=== PATIENT | male | born 1945 | race Caucasian/White ===

== ENCOUNTER → 2025-02-13 | Outpatient (BNVA) | payer MEDICARE, MEDICAID, SELFPAY | END | disposition home or self-care (01) | PROVIDERS: PCP Physician Assistant; Referring Provider Physician Assistant; Visit Provider Urology | DX: N40.1 Benign prostatic hyperplasia with lower urinary tract symptoms (principal); N13.8 Other obstructive and reflux uropathy; R97.20 Elevated prostate specific antigen [PSA]; R39.198 Other difficulties with micturition; N40.2 Nodular prostate without lower urinary tract symptoms; K74.60 Unspecified cirrhosis of liver; I10 Essential (primary) hypertension; I85.00 Esophageal varices without bleeding; E78.5 Hyperlipidemia, unspecified | CPT/HCPCS: 81003; 99203; G0463 ==

== ENCOUNTER 2025-08-15 08:50 | Inpatient (IN) | payer MEDICARE, MEDICAID, SELFPAY ==
[2025-08-15] VITALS (10 sets, daily range): BP systolic 93–136; BP diastolic 60–86; PULSE 90–112; RESP 17–94; TEMP 36.1–36.8; O2SAT 91–98; BMI 22.6
--- NOTE | 2025-08-15 09:24 | XR_ITS ---
Examination: Abdomen sonogram, Limited Date and time of exam: August 15, 2025, 10 0 3:00 a.m. INDICATIONS: History of ascites, abdominal distention beginning 2 weeks ago Technique: Real-time george scale transabdominal sonographic images of the upper abdomen obtained. Findings: Posterior gallbladder wall 0.4 cm Negative for gallstones Normal common bile duct 0.3 cm Pancreatic head 2.3 cm Liver 10.3 cm nodular contour 23 mm liver cyst Mild ascites Moderate right pleural fluid Normal hepatopetal portal venous flow Patent IVC IMPRESSION: Mild ascites
--- NOTE | 2025-08-15 09:29 | PD.EDABDPN ---
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 Patient stated he has had increased abdominal girth causing discomfort when breathing. Patient unaware of diagnosis of cirrhosis and not aware of history of CHF. Denied sick contacts. Denied diarrhea. Denied history of hematemesis or hemoptysis. Denied melena or hematochezia.SOB w/ exertion. Per family 5lb weight loss. CBC CMP PT/INR US Related Data Home Medications ?Medication ?Instructions ?Recorded ?Confirmed lovastatin 20 mg tablet 20 mg PO QPM 05/17/22 02/13/25 tamsulosin 0.4 mg capsule 0.4 mg PO QHS 03/08/23 02/13/25 benazepril 20 mg tablet 20 mg PO QDAY 02/13/25 02/13/25 Allergies Allergy/AdvReac Type Severity Reaction Status Date / Time hypertonic saline nebulized AdvReac Severe Difficulty Uncoded 08/15/25 08:54 Breathing Review of Systems Review of Systems Narrative Review of Systems: General appearance: NO weight change, Yes fatigue, NO weakness, NO fever, NO chills, NO night sweats, No cough Skin: NO rash, NO itching, NO sores, NO moles HEENT: NO Trauma, NO nausea, NO vomiting, NO visual changes, NO blurry vision, NO double vision, NO tinnitus, NO vertigo, NO ear discharge, NO rhinorrhea, NO stuffiness, NO sneezing, NO allergy, NO epistaxis. NO Hoarseness, NO sore throat, NO swollen neck. Cardiac: NO Palpitations, NO dyspnea on exertion, NO orthopnea, NO paroxysmal nocturnal dyspnea, NO edema, Respiratory discomfort and Shortness of breath w/ exertion Respiratory: NO Shortness of Breath, NO Wheezing, NO Cough, NO Sputum, NO hemoptysis GI:NO appetite, NO nausea, NO vomiting, NO dysphagia, NO changes in bowel frequency, NO stool color, NO diarrhea, NO constipation, NO hemetemesis, NO hemorrhoids, NO melena, NO hematechezia, NO abdominal pain, NO jaundice, Increase abdominal distention Renal: NO frequency, NO hesitancy, NO urgency, NO hematuria, NO nocturia, NO incontinence MSK: NO muscle weakness, NO gout, NO arthritis, NO muscle stiffness Neuro: NO headaches, NO tremors, NO weakness, NO paralysis, NO seizures, NO loss of consciousness, NO numbness. Hem: NO anemia, NO easy bruising/bleeding, NO petechiae, NO purpura Endo: NO heat/cold intolerance, NO excessive sweating, NO polyuria, NO polydipsia, NO polyphagia, NO thyroid problems, NO diabetes Pysch: NO mood, NO anxiety, NO depression ED Exam Narrative Physical exam: General Appearance: Alert & Oriented X3, thin appearing male who is lying in bed in mild discomfort secondary to abdominal distention. HEENT: Skull symmetrical and atraumatic. Conjunctivae pale pink and moist. Pupils equal, round, reactive to light and accommodation (PERRL). External ear without lesion or discharge. Straight, nares patient, mucosa pink, no discharge. Cardio: Normal Rate and Rhythm with S1 and S2 heart sounds. No murmurs or extra heart sounds auscultated. No bruits on carotid auscultation. No peripheral edema or cyanosis. Lungs: Symmetric with good expansion. Chest and back non-tender. Decreased vesicular breath sounds on right lower lobe. Abdomen: Non-tender, Non-distended, Normal Reactive Bowel Sounds Neuro: Alert, cooperative, oriented to person, place, and time. Speech clear. CN grossly intact. Upper motor strength 5/5 and Lower motor strength 5/5. Sensation intact. Course Course Course Narrative: CBC ordered--> anemia with hemoglobin of 10.3 and hematocrit 31.5 MCV 94 platelet count 73, PT 13.2 INR 1.3 CMP: Sodium 137, total T. bili 1.6 AST 30 ALT 9 BNP 122 albumin 2.8 lipase 38 Previous H hep 05/18/2022 negative Ultrasound liver: Mild ascites moderate right pleural fluid noted Chest x-ray 08/15/2025: Large left pleural effusion and pneumonia of the right lung base--> concern for bilateral pleural effusion Quality Measures none Orders Category Date Time Status Bedside COVID-19 Antigen Test NOW Care 08/15/25 11:57 Active Insert IV NOW Care 08/15/25 12:33 Active US liver Stat Exams 08/15/25 09:24 Completed XR chest 1V portable Stat Exams 08/15/25 11:09 Completed Albumin, Peritoneal Fluid Routine Lab 08/15/25 09:25 Ordered Amylase,Peritoneal Fluid Routine Lab 08/15/25 09:25 Ordered BNP [B-Type Natriuretic Peptide] Routine Lab 08/15/25 09:36 Completed Body Fld Cult w Miguelina & Gram St Routine Lab 08/15/25 09:25 Ordered CBC Stat Lab 08/15/25 09:36 Completed CMP [Comprehensive Metabolic Panel] Stat Lab 08/15/25 09:36 Completed Cocci Serology IgM with reflex to IgG [Cocci Serology, Lab 08/15/25 09:51 Results Unk History] Stat Cocci Serology, IgG Stat Lab 08/15/25 09:51 Results FLU A&B [Influenza A & B Rapid Panel] Stat Lab 08/15/25 12:45 Completed Glucose,Peritoneal Fluid Routine Lab 08/15/25 09:25 Ordered LDH (Lactate Dehydrogenase) Stat Lab 08/15/25 09:36 Completed LDH,Peritoneal Fluid Routine Lab 08/15/25 09:25 Ordered Lipase Stat Lab 08/15/25 09:36 Completed PT [Prothrombin Time with INR] Stat Lab 08/15/25 09:36 Completed PTT [Partial Thromboplastin Time] Stat Lab 08/15/25 09:36 Completed Peritoneal Cell Cnt/Diff Routine Lab 08/15/25 09:25 Ordered Protein Total,Peritoneal Fluid Routine Lab 08/15/25 09:25 Ordered Doxycycline Inj [Vibramycin Inj] 100 mg Med 08/15/25 11:57 Discontinued Sodium Chloride 0.9% (Pop) [NS 0.9% mini bag] 100 ml IV X1 Furosemide [Lasix] Med 08/15/25 11:44 Discontinued 20 mg PO X1 ONE Furosemide [Lasix] Med 08/15/25 11:46 Discontinued 40 mg PO X1 ONE cefTRIAXone/D5w 1gm IV premix [Rocephin/D5w 1gm IV Med 08/15/25 11:57 Discontinued premix] 1 gm in 50 ml IV X1 Vital Signs Vital signs: Vital Signs Temperature 97.6 F 08/15/25 11:22 Pulse Rate 111 H 08/15/25 11:22 Respiratory Rate 17 08/15/25 11:22 Blood Pressure 126/76 08/15/25 11:22 Pulse Oximetry (%) 94 L 08/15/25 11:22 Oxygen Delivery Method Room Air 08/15/25 11:22 Abdominal Pain MDM Patient data External records reviewed:: [facility] previous records Clinical information provided by:: patient and family Social determinants that could affect healthcare access:: other (specify) (health literacy ) Patient has the following chronic illnesses:: HTN, CHF HFrEF 35-40%, decompensated cirrhosis How is presenting disease/condition affected by chronic disease/condition?: exacerbated by (cirrhosis & CHF ) Evaluation data The following diagnostics were reviewed and interpreted by me:: lab results Lab and/or radiology exams considered but not ordered:: none Interpretation Summary: Patient has a past medical history of decompensated cirrhosis, secondary to alcohol use disorder complaining of increasing abdominal girth and with sob w/ exertion. Chest x-ray noted to have left sided meniscus sign w/ likely pleural effusion and right sided pneumonia which there is a mild menisus sign which possible bilateral pleural effusion can not be ruled out. Antibiotics Ceftriaxone and doxy X 1 given concern for pneumonia. Lasix X 1 - The patient's plan was discussed with attending Dr. Breanne Mathias MD PGY2 Internal Medicine Medications / Prescriptions Medications or Prescriptions considered but not ordered:: none Medication administrations:: Medication Administration History Acetaminophen (Acetaminophen 500 Mg Tablet) 1,000 mg PO Q6H PRN PRN Reason: Fever >101.5 Stop: 09/14/25 13:12 Ceftriaxone Sodium/Dextrose (Rocephin/D5w 1gm Iv Premix) 1 gm in 50 mls @ 100 mls/hr IV QDAY OLGA Stop: 08/23/25 08:59 Metoprolol Succinate (Metoprolol Succinate Xl 25 Mg Tabcr) 25 mg PO HS OLGA Stop: 09/14/25 20:59 Ondansetron HCl (Ondansetron Inj 2 Mg/Ml Inj 2 Ml) 4 mg IVP Q6H PRN; Protocol PRN Reason: NAUSEA OR VOMITING Stop: 09/14/25 13:12 Discontinued Medications Furosemide (Furosemide 20 Mg Tablet) 20 mg PO X1 ONE Stop: 08/15/25 11:45 Furosemide (Furosemide 40 Mg Tablet) 40 mg PO X1 ONE Stop: 08/15/25 11:47 Last Admin: 08/15/25 12:40 Dose: 40 mg Documented By: IVANNA Ceftriaxone Sodium/Dextrose (Rocephin/D5w 1gm Iv Premix) 1 gm in 50 mls @ 100 mls/hr IV X1 ONE Stop: 08/15/25 12:26 Last Infusion: 08/15/25 13:06 Dose: Infused Documented By: Admin: 08/15/25 12:33 Dose: 100 mls/hr Documented By: IVANNA Doxycycline Hyclate 100 mg/ (Sodium Chloride) 100 mls @ 100 mls/hr IV X1 ONE Stop: 08/15/25 12:56 Last Infusion: 08/15/25 15:07 Dose: Infused Documented By: Admin: 08/15/25 13:05 Dose: 100 mls/hr Documented By: IVANNA same as above Consultations Consultation(s) initiated? (list below): No Diagnosis Differential diagnosis abdominal pain: calculus of kidney, constipation, pancreatitis, small bowel obstruction and other (cirrhosis) Most likely diagnosis given after review of the tests above:: Decompensated cirrhosis secondary to alcohol use disorder. Admission Indicated Admission indicated?: indicated Explain why admission is indicated or not indicated:: Yes, Admission indicated as patient presented with worsening decompensated cirrhosis w/ ascites, pneumonia, and concern for bilateral pleural effusion. Patient requires thoracentesis. - The patient's plan was discussed with attending Dr. Breanne Mathias MD PGY2 Internal Medicine Admission Request Was there a request for admission?: Yes Admission Attestation Admission request attestation: Discussed case with Dr. Resendiz from Hospitalist service regarding admission. Discussed patients ED course, exam findings, labs, and radiology results. The Hospitalist agrees to accept the patient for admission. Disposition Plan Disposition Plan: Admit Discharge Plan Plan Patient Disposition: Other Care w/in Hosp ([facility]) Problem List Clinical Impression: Pneumonia, Pleural effusion associated with hepatic disorder, Ascites
--- NOTE | 2025-08-15 09:52 | PC.NURSE ---
called pt back, no answer at this time
[2025-08-15 09:53] LABS: Basophils # (Auto) 0.0 Thou/mm3 (0.0-0.2); Basophils % (Auto) 1 % (0-2.5); Eosinophils # (Auto) 0.0 Thou/mm3 (0.0-0.5); Eosinophils % (Auto) 1 % (0-10); Hematocrit 31.5 % (41.0-53.0); Hemoglobin 10.3 g/dL (13.5-16.0); Immature Granulocytes Auto 0.02 Thou/mm3 (0.00-0.00); Lymphocytes # (Auto) 0.5 Thou/mm3 (1.0-4.8); Lymphocytes % (Auto) 11 % (10-50); Mean Corpuscular HGB Conc 32.7 g/dl (31.0-37.0); Mean Corpuscular Hemoglobin 30.6 pg (25.0-35.0); Mean Corpuscular Volume 94 fL (80-100); Monocytes # (Auto) 0.5 Thou/mm3 (0.0-0.8); Monocytes % (Auto) 11 % (0-12); Neutrophils # (Auto) 3.5 Thou/mm3 (1.8-7.7); Neutrophils % (Auto) 77 % (37-80); Nucleated Red Blood Cell # 0.00 Thou/mm3 (0.00-0.00); Nucleated Red Blood Cell % 0 /100 WBC (0); RDW Standard Deviation 53.4 fL (35.1-43.9); Red Blood Count 3.37 Miln/mm3 (4.50-5.90); White Blood Count 4.6 Thou/mm3 (3.8-10.6)
[2025-08-15 09:58] LABS: Platelet Count 73 Thou/mm3 (140-440)
[2025-08-15 10:11] LABS: Slide Review Platelets confirmed
[2025-08-15 10:28] LABS: Alanine Aminotransferase 9 U/L (10-49); Albumin, Serum 2.8 gm/dL (3.4-4.8); Albumin/Globulin Ratio 0.6 (1.2-2.2); Alkaline Phosphatase 78 U/L (46-116); Anion Gap 7 (7-16); Aspartate Amino Transferase 30 U/L (0-34); BUN/Creatinine Ratio 10 Ratio (12-20); Bilirubin,Total 1.6 mg/dL (0.3-1.2); Blood Urea Nitrogen 8 mg/dL (9-23); Calcium 7.9 mg/dL (8.3-10.6); Calcium (Corrected) 8.9 mg/dL (8.5-10.1); Carbon Dioxide 25.6 mMol/L (20.0-31.0); Chloride 104 mMol/L (98-107); Creatinine (Component) 0.8 mg/dL (0.6-1.3); Globulin 4.6 gm/dL (2.3-3.5); Glucose 104 mg/dL (74-106); LDH (Lactate Dehydrogenase) 199 U/L (120-246); Osmolality,Calculated 272 (275-295); Potassium 3.9 mMol/L (3.4-5.1); Sodium 137 mMol/L (136-145); Total Protein 7.4 gm/dL (5.7-8.2); eGFR > 60 See Note
[2025-08-15 10:58] LABS: INR 1.3 (0.9-1.3); Partial Thromboplastin Time 33.9 Seconds (22.0-36.0); Prothrombin Time 13.2 Seconds (9.0-12.2)
--- NOTE | 2025-08-15 11:09 | XR_ITS ---
EXAMINATION: PA chest single view TECHNIQUE: Upright PA chest single view Date and time: August 15, 2025, 1118 hours, comparison April 15, 2023 INDICATIONS: Shortness of breath today. FINDINGS: Normal heart size Large left pleural effusion Moderate right pleural effusion Pneumonia at the right lung base Ectatic thoracic aorta IMPRESSION: Large left pleural effusion Pneumonia right lung base
[2025-08-15 12:30] LABS: Lipase 38 U/L (12-53)
[2025-08-15] MEDS: cefTRIAXone/D5w 1gm IV premix 1 GM/50 ML BAG IV (12:33)
[2025-08-15 12:40] LABS: B-Type Natriuretic Peptide 122 pg/mL (0-100)
[2025-08-15] MEDS: DOXYCYCLINE INJ 100 MG in SODIUM CHLORIDE 0.9% (POP) 100 ML IV (13:05)
[2025-08-15 13:26] LABS: Cocci Serology, IgM Negative (Negative)
[2025-08-15 13:36] LABS: Influenza A Ag Negative; Influenza B Ag Negative
--- NOTE | 2025-08-15 15:23 | XR_ITS ---
Date and time: August 15, 2025, 1541 hours, comparison August 15, 2025 11:10 a.m. Examination: AP chest single view TECHNIQUE: AP portable semiupright chest single view INDICATIONS: Difficulty breathing this week with large bilateral pleural effusions, post thoracentesis. FINDINGS: Decrease in left pleural fluid No significant pneumothorax Large pleural effusions remain. Normal heart size IMPRESSION: No significant pneumothorax post thoracentesis
--- NOTE | 2025-08-15 15:40 | ECHO_ITS ---
Patient Info Name: Chet Felton Age: 80 years : 1945 Gender: Male Ht: 163 cm Wt: 60 kg BSA: 1.65 m2 BP: 105 / 60 mmHg Heart Rhythm: Tachycardia Exam Date: 08/16/2025 10:29 AM Admit Date: 08/15/2025 Site: [facility] Patient Status: I Technical Quality: Poor Exam Type: CA echo doppler complete Reason for Poor Study: poor echocardiographic windows Steam Room Attendant: Josie Lassiter Ordering Physician: Manpreet Altman Study Info Indications History of HFrEF - Primary Location: [id number] Left Ventricular Outflow Tract Name Value Normal LVOT 2D LVOT Diameter 2.0 cm LVOT Doppler LVOT Peak Velocity 112 cm/s LVOT Mean Gradient 2 mmHg LVOT VTI 19 cm LVOT VTI/AV VTI Ratio 1.6 LVOT Stroke Volume 59 ml Pulmonic Valve Name Value Normal PV Doppler PV Peak Velocity 109 cm/s Mitral Valve Name Value Normal MV Annular TDI MV Septal e' Velocity 5.9 cm/s MV Lateral e' Velocity 21.3 cm/s MV e' Average 13.59 cm/s Tricuspid Valve Name Value Normal TV Annular TDI TV Lateral Tita s' Velocity 13.3 cm/s >=9.5 Aorta Name Value Normal Ascending Aorta Ao Root Diameter (MM) 2.1 cm Ao Root Diam Index (MM) 1.3 cm/m2 Ao Root Diameter (2D) 3.2 cm Ao Root Diam Index (2D) 1.9 cm/m2 Aortic Valve Name Value Normal AV 2D/MM AV Cusp Sep (MM) 1.6 cm AV Doppler AV Peak Velocity 82 cm/s AV Mean Gradient 1 mmHg AV VTI 12 cm AV Area (Cont Eq VTI) 4.9 cm2 >=3.0 AV Area (Cont Eq Leo) 4.3 cm2 AV DI (Leo) 1.37 AV Regurgitation 2D LVOT Area 3.1 cm2 Ventricles Name Value Normal LV Dimensions 2D/MM IVS Diastolic Thickness (2D) 0.8 cm 0.6-1.0 LVID Diastole (2D) 4.2 cm 4.2-5.8 LVIW Diastolic Thickness (2D) 0.9 cm 0.6-1.0 LVID Systole (2D) 2.6 cm 2.5-4.0 LVOT Diameter 2.0 cm LV Mass (2D Cubed) 109.83 g 88.00-224.00 LV Mass Index (2D Cubed) 67 g/m2 49-115 Relative Wall Thickness (2D) 0.43 <=0.42 IVS/LVIW Diastolic Thickness (2D) 0.89 0.00-1.50 LV Fractional Shortening/Ejection Fraction 2D/MM LV Fractional Shortening (2D) 38 % 25-43 LV EF (2D Teichholz) 69 % LV Diastolic Volume (4C MOD) 86 ml LV EF (4C MOD) 44 % LV Diastolic Volume (2C MOD) 99 ml LV EF (2C MOD) 47 % LV Diastolic Volume (BP MOD) 98 ml 62-150 LV Diastolic Volume Index (BP MOD) 59 ml/m2 34-74 LV Systolic Volume (BP MOD) 54 ml 21-61 LV Systolic Volume Index (BP MOD) 33 ml/m2 11-31 LV EF (BP MOD) 45 % 52-72 LV Diastolic Length (4C) 7.1 cm LV Systolic Length (4C) 6.4 cm LV Stroke Volume (4C MOD) 38 ml RV Dimensions 2D/MM TV Lateral Tita s' Velocity 13.3 cm/s >=9.5 Atria Name Value Normal LA Dimensions LA Dimension (2D) 3.5 cm 3.0-4.0 LA Dimen Index (2D) 2.1 cm/m2 LA Dimension (MM) 3.4 cm 3.0-4.0 LA Volume (4C A-L) 23 ml LA Volume (BP A-L) 26 ml Wall Motion Scoring Wall Motion Scoring Index: 2.06 Left Ventricle Left ventricular chamber dimension is normal. Left ventricular systolic function is moderately reduced with visually estimated ejection fraction of 40-45%. The apex, inferior wall, anterior wall, anteroseptal wall, inferolateral wall, mid inferoseptal, and mid anterolateral wall are hypokinetic. The basal inferoseptal is dyskinetic. All other hernandez appear normal. Left ventricular segmental wall motion is abnormal. There is indeterminate diastolic function in the left ventricle. Right Ventricle Right ventricular chamber dimension is normal. Right ventricular systolic function is normal. Left Atrium Left atrial chamber dimension is normal. Right Atrium Right atrial chamber dimension is normal. Aortic Valve The aortic valve is trileaflet. There is mild aortic valve sclerosis. There is no aortic valve stenosis with a peak velocity of 82 cm/s, mean gradient of 1 mmHg, and aortic valve area of 4.9 cm2. There is no aortic valve regurgitation. Pulmonic Valve The pulmonic valve is normal. There is no pulmonic valve stenosis. There is no pulmonic regurgitation. Mitral Valve The mitral valve has thickened leaflets. There is no mitral valve stenosis. There is mild mitral valve regurgitation. Tricuspid Valve The tricuspid valve leaflets are normal. There is no tricuspid valve stenosis. There is no tricuspid valve regurgitation. Unable to estimate pulmonary artery systolic pressure due to inadequate tricuspid regurgitant envelope. Pericardium/Pleural The pericardium appears normal. There is no pericardial effusion. No pleural effusion visualized. Aorta The aortic measurements are indexed to age and body surface area. Summary 1. The echocardiogram is normal by two-dimensional, color flow imaging, and Doppler interrogation. 2. Left ventricular systolic function is moderately reduced with visually estimated ejection fraction of 40-45%. 3. The apex, inferior wall, anterior wall, anteroseptal wall, inferolateral wall, mid inferoseptal, and mid anterolateral wall are hypokinetic. 4. Right ventricle size is normal, and systolic function is normal. 5. There is mild aortic valve sclerosis with no stenosis. 6. There is mild mitral valve regurgitation. Report Signatures Finalized by So Diane on 08/16/2025 02:57 PM
[2025-08-15 16:27] LABS: Amylase,Pleural Fluid 24 IU/L; Glucose,Pleural Fluid 95 mg/dL; LDH,Pleural Fluid 50 IU/L; Protein Total,Pleural Fluid < 2.0 g/dL
[2025-08-15 16:29] LABS: Pleural Fluid WBC 207 /cmm
[2025-08-15 16:33] LABS: Pleural Fluid Appearance Cloudy; Pleural Fluid Color Yellow; Pleural Fluid RBC 7000 /cmm
[2025-08-15 16:34] LABS: Pleural Fluid Mononuclear 61 %; Pleural Fluid Polynuclear 39 %
--- NOTE | 2025-08-15 16:42 | ESHP_ITS ---
Documentation for date of: 08/15/25 HPI History of Present Illness History of present illness: HPI: 80-year-old male with a past medical history of Hypertension, cirrhosis with ascites, esophageal varices 4+ secondary to alcohol use disorder, CHF, HFrEF with an EF of 35-40%, who presented to the ED with chief complaint of water in his stomach and diffuse abdominal tenderness and pain during respiration. It started the day of admission and he has associated increased abdominal girth and pain during respiration. Patient is apparently unaware of his history of cirrhosis and CHF. He was found to have a large left pleural effusion on chest x-ray as well as right basilar pneumonia. Patient was admitted for observation of his acute decompensated cirrhosis secondary to alcohol use disorder. ED course: * Significant vitals on arrival included a heart rate of 111, satting at 94% on room air * Significant labs on arrival included a hemoglobin of 10.3, hematocrit 31.5, PT 13.2, T. bili 1.6, albumin 2.8 * Imaging: Chest x-ray showed a large left pleural effusion, liver ultrasound showed mild ascites, 23 mm liver cyst * Patient was started on ceftriaxone and doxycycline in the ED and given one- time dose of furosemide 40 mg. A left-sided thoracentesis was performed in the ED that drained approximately 2 L of fluid which was sent for cytology. History: * Past medical history as above. Patient denies having any medical conditions. * Surgical history: Hernia repair * Social history: Alcohol use disorder in the past, denies drinking currently * Home medications: Benazepril 20 mg daily, lovastatin 20 mg nightly, tamsulosin 0.4 mg nightly * Allergies: No known drug allergies Review of Systems Review of Systems Narrative Review of Systems: Review of Systems: * General: Denies fevers, chills. * HEENT: Denies headache, congestion, or sore throat. * Cardiac: Denies chest pain or palpitations. * Pulmonary: Admits to pain during respiration. * GI: Endorses increased bloating, increased abdominal girth. Patient mentions that he has been constipated. Denies nausea, vomiting, diarrhea, melena, or hematochezia. * : Denies dysuria, hematuria, frequency, or urgency. * MSK: Denies pain in the extremities, joints, or myalgias. * Neuro: Denies weakness, numbness, vision changes, or speech difficulty. Exam Vital Signs Temp Pulse Resp BP Pulse Ox O2 Del Method 98 F 110 H 18 130/86 H 98 Room Air 08/15/25 15:19 08/15/25 15:19 08/15/25 15:19 08/15/25 15:19 08/15/25 15:19 08/15/25 15:19 Narrative Exam General: Frail elderly man, temporal wasting. Awake and in no acute distress. Neurologic: GCS 15. Alert and oriented x3, no gross neurological deficit, and patient able to move all 4 extremities. HEENT: Normocephalic, atraumatic, mucous membranes moist. Pupils reactive to light. Heart: Regular rate and rhythm, normal S1 and S2, no murmurs. Lungs: No breath sounds in the left base, decreased breath sounds in the right base, bilateral apices clear to auscultation. Abdomen: Distended, positive fluid wave, nontender. No guarding or rebound tenderness. Extremities: No edema. 2+ radial and dorsalis pedis pulses bilaterally. Skin: Warm. Dry. No rash or ecchymoses. Results: Labs 08/16/25 04:25 08/16/25 04:25 Labs: Short CBC 08/15/25 Range/Units 09:36 WBC 4.6 (3.8-10.6) Thou/mm3 Hgb 10.3 L (13.5-16.0) g/dL Hct 31.5 L (41.0-53.0) % Plt Count 73 L (140-440) Thou/mm3 BMP 08/15/25 09:36 Sodium 137 Potassium 3.9 Chloride 104 Carbon Dioxide 25.6 BUN 8 L Creatinine 0.8 Glucose 104 Calcium 7.9 L Liver Function 08/15/25 Range/Units 09:36 Total Bilirubin 1.6 H (0.3-1.2) mg/dL AST 30 (0-34) U/L ALT 9 L (10-49) U/L Alkaline Phosphatase 78 (46-116) U/L Albumin 2.8 L (3.4-4.8) gm/dL Quality Measures Quality Measures none Advance care planning discussed with:: patient Medications Home Medications and Allergies Home Medications ?Medication ?Instructions ?Recorded ?Confirmed ?Type lovastatin 20 mg tablet 20 mg PO QPM 05/17/22 History tamsulosin 0.4 mg capsule 0.4 mg PO QHS 03/08/2308/15 History benazepril 20 mg tablet 20 mg PO QDAY 02/13/2508/15 History Allergies Allergy/AdvReac Type Severity Reaction Status Date / Time hypertonic saline nebulized AdvReac Severe Difficulty Uncoded 08/15/25 08:54 Breathing Visit Medications Acetaminophen (Acetaminophen 500 Mg Tablet) 1,000 mg PO Q6H PRN PRN Reason: Fever >101.5 Stop: 09/14/25 13:12 Ceftriaxone Sodium/Dextrose (Rocephin/D5w 1gm Iv Premix) 1 gm in 50 mls @ 100 mls/hr IV QDAY OLGA Stop: 08/23/25 08:59 Metoprolol Succinate (Metoprolol Succinate Xl 25 Mg Tabcr) 25 mg PO HS OLGA Stop: 09/14/25 20:59 Ondansetron HCl (Ondansetron Inj 2 Mg/Ml Inj 2 Ml) 4 mg IVP Q6H PRN; Protocol PRN Reason: NAUSEA OR VOMITING Stop: 09/14/25 13:12 Discontinued Medications Furosemide (Furosemide 20 Mg Tablet) 20 mg PO X1 ONE Stop: 08/15/25 11:45 Furosemide (Furosemide 40 Mg Tablet) 40 mg PO X1 ONE Stop: 08/15/25 11:47 Last Admin: 08/15/25 12:40 Dose: 40 mg Ceftriaxone Sodium/Dextrose (Rocephin/D5w 1gm Iv Premix) 1 gm in 50 mls @ 100 mls/hr IV X1 ONE Stop: 08/15/25 12:26 Last Infusion: 08/15/25 13:06 Dose: Infused Doxycycline Hyclate 100 mg/ (Sodium Chloride) 100 mls @ 100 mls/hr IV X1 ONE Stop: 08/15/25 12:56 Last Infusion: 08/15/25 15:07 Dose: Infused Assessment & Plan Plan Summary: 80-year-old male with a past medical history of Hypertension, cirrhosis with ascites, esophageal varices 4+ secondary to alcohol use disorder, CHF, HFrEF with an EF of 35-40%, who presented to the ED with chief complaint of water in his stomach and diffuse abdominal tenderness and pain during respiration. Thoracentesis was performed in the ED. Patient was admitted for observation of his acute decompensated cirrhosis secondary to alcohol use disorder. #Acute decompensated cirrhosis * Abdominal ultrasound showed moderate ascites * Fluid wave on exam * Patient mentions a history of alcohol use * May be contributing to pleural effusion and ascites Plan: * Patient received Lasix in the ED Reassessment: * Trend urine output * Follow-up abdominal exam #Left pleural effusion #Possible pneumonia * Patient has a history of ICU admission and thoracentesis that yielded 4 L of fluid in 2022 * Large left pleural effusion shown on x-ray, evidence of pneumonia on the right as well * Thoracentesis performed in the ED that yielded approximately 2 L of fluid, was sent for cytology * Patient had improvement in his pain on respiration status-post thoracentesis * Follow-up chest x-ray showed little improvement, may require additional thoracentesis Plan: * Consider repeat thoracentesis * Ceftriaxone Reassessment: * Continue to monitor respiratory status #History of HFrEF EF 35 to 40% #History of CHF * Echo in 2022 showed an EF of 35 to 40% * Per med rec, patient is not on GDMT for HFrEF * Patient has no signs of acute decompensated heart failure on exam, no peripheral edema, lung sounds outside of the pleural effusion are clear to auscultation, pleural effusion likely secondary to liver cirrhosis not acute decompensated heart failure Plan: * Started patient on metoprolol succinate 25 * Repeat echo ordered Reassessment: * Follow-up echo results * Consider discharging patient on GDMT #History of hypertension * Per chart review * Patient takes benazepril 20 mg daily Plan: * Holding for now #History of upper GI bleed #History of +4 bleeding esophageal varices secondary to #History of alcohol use disorder * Follows Dr. Leiva * Status post band ligation in 2022 Plan: * No direct intervention at this time #Normocytic anemia * Hemoglobin 10.3, MCV 94 Plan: * Appears to be a chronic issue * Will transfuse if hemoglobin below 7 Hospital Maintenance: DVT ppx: SCDs, holding chemical prophylaxis, may repeat thoracentesis Diet: Cardiac diet IV lines: Peripheral IVs Code status: Full code Dispo: Patient mated for observation, diuresing, may repeat thoracentesis, started on metoprolol for GDMT of history of HFrEF, repeat echo ordered. Patient was seen and discussed with my attending physician Dr. Don MCDONALD. Manpreet Altman DO PGY-1. Attending Provider Attestation/Addendum I, Samara Ochoa DO, attest that I was physically present for the gong portions of the service and evaluated the patient with the resident and I reviewed and discussed the case with the resident and agree with the resident's findings and plans of care as documented above Patient is an 80-year-old male with past medical history of hypertension, BPH, chronic pleural effusion alcoholic cirrhosis with ascites, esophageal varices, cardiomyopathy with ejection fraction 35 to 40% who presents to the ED due to abdominal discomfort for the past week. He also endorses having some shortness of breath with ambulation. He states that is difficult for him to take deep breaths due to pain in his abdomen. Patient has had previous admissions for decompensated cirrhosis and GI bleed. Patient was noted to have a reduced ejection fraction in the past with EF of 35 to 40%. However, patient states that he does not take any medications at home. Upon evaluation in the ED, he was noted to have a large left pleural effusion and moderate right pleural effusion with possible pneumonia at the right lung base. Patient denies any fevers, chills, nausea, vomiting, chest pain, dysuria or diarrhea. Will admit to [facility] [place] for further workup and medical management of possible decompensated cirrhosis versus acute CHF exacerbation. Will obtain echo and fluid studies once thoracentesis is done. On exam, patient has diminished breath sounds in bilateral lung bases. Abdomen is mildly distended with mild tenderness to deep palpation. No peripheral edema noted.
--- NOTE | 2025-08-15 17:26 | ESOP_ITS ---
PROCEDURES: Procedure Date / Time 08/15/25 1726 Procedure Narrative Procedure Narrative: Attending Attestation: I was present for entire procedure. No immediate complications. Patient tolerated procedure well with minimal blood loss. Follow-up chest x-ray shows no significant postprocedural pneumothorax. Follow- up on fluid analysis. Thoracentesis Indication(s): symptomatic Pleural Effusion Informed consent obtained from: patient Time out done, and the following verified: correct patient, side and site, procedure, patient position and implants and/or equipment Ultrasound used: Yes Procedure location: lt. post pleual space Amount pleural fluid removed (ml): 2,000 EBL(ml): 1 Procedure comment: The patient was identified and informed consent was obtained after discussing the risks, benefits, and alternatives of the procedure. The procedure site was confirmed and marked, and the patient was positioned comfortably in the sitting position with arms resting on a table. The effusion was identified on ultrasound on the left lateral posterior chest wall. The skin was prepped and draped after donning a surgical gown and gloves. The area was anesthetized with lidocaine. The needle and catheter were introduced into the pleural space at the selected site. Approximately 2 L of pleural fluid was drained. A sample was sent for cytology analysis. The patient tolerated the procedure well. A follow- up chest x-ray was obtained. I was supervised and assisted by my attending physician Dr. Nika ORTIZ. Manpreet Altman DO PGY-1
--- NOTE | 2025-08-15 19:02 | PRELIM_ITS ---
Radiograph of the chest (single view). August 15, 2025 1541 hours Clinical history: Status-post thoracentesis Comparison: . None. Findings: Moderate???large bilateral pleural effusions. The left pleural effusion is partially loculated. There is collapse/atelectasis of the right and left lower lobes. Suspected spiculated left midlung mass (which would be better evaluated by CT than x-ray). No pneumothorax is seen. Borderline cardiomegaly. The bony thorax is unremarkable. Impression: Pleural effusions as above. Suspected spiculated left pulmonary mass (which would be better evaluated by CT than x-ray). Report Electronically Signed By: Chet Pandey 08/15/2025 7:02:17 PM [EST]
[2025-08-15 21:14] LABS: Misc Send Out* See Sep Rpt
[2025-08-16] VITALS (11 sets, daily range): BP systolic 99–117; BP diastolic 60–81; PULSE 94–124; RESP 18–96; TEMP 36.6–37.2; O2SAT 91–93
--- NOTE | 2025-08-16 03:31 | PC.NURSE ---
Per hospital monitor, Pt is tachycardic (HR of 116) and running frequent PVCs and bigeminy. Pt appears to be calm/relaxed, no complaints of pain/discomfort, and no signs of distress. Dr. Foster was made aware. No new orders at this time.
[2025-08-16 05:13] LABS: Basophils # (Auto) 0.0 Thou/mm3 (0.0-0.2); Basophils % (Auto) 1 % (0-2.5); Eosinophils # (Auto) 0.1 Thou/mm3 (0.0-0.5); Eosinophils % (Auto) 3 % (0-10); Hematocrit 26.0 % (41.0-53.0); Immature Granulocytes Auto 0.01 Thou/mm3 (0.00-0.00); Lymphocytes # (Auto) 0.3 Thou/mm3 (1.0-4.8); Lymphocytes % (Auto) 11 % (10-50); Mean Corpuscular HGB Conc 33.5 g/dl (31.0-37.0); Mean Corpuscular Hemoglobin 31.1 pg (25.0-35.0); Mean Corpuscular Volume 93 fL (80-100); Monocytes # (Auto) 0.3 Thou/mm3 (0.0-0.8); Monocytes % (Auto) 12 % (0-12); Neutrophils # (Auto) 2.1 Thou/mm3 (1.8-7.7); Neutrophils % (Auto) 74 % (37-80); Nucleated Red Blood Cell # 0.00 Thou/mm3 (0.00-0.00); Nucleated Red Blood Cell % 0 /100 WBC (0); RDW Standard Deviation 52.4 fL (35.1-43.9); Red Blood Count 2.80 Miln/mm3 (4.50-5.90); White Blood Count 2.9 Thou/mm3 (3.8-10.6)
[2025-08-16 05:21] LABS: Hemoglobin 8.7 g/dL (13.5-16.0); Platelet Count 45 Thou/mm3 (140-440)
[2025-08-16 06:13] LABS: Alanine Aminotransferase 7 U/L (10-49); Albumin, Serum 2.4 gm/dL (3.4-4.8); Albumin/Globulin Ratio 0.6 (1.2-2.2); Alkaline Phosphatase 61 U/L (46-116); Anion Gap 4 (7-16); Aspartate Amino Transferase 28 U/L (0-34); BUN/Creatinine Ratio 13 Ratio (12-20); Bilirubin,Total 1.0 mg/dL (0.3-1.2); Blood Urea Nitrogen 9 mg/dL (9-23); Calcium 7.7 mg/dL (8.3-10.6); Calcium (Corrected) 9.0 mg/dL (8.5-10.1); Carbon Dioxide 28.6 mMol/L (20.0-31.0); Cardiac Risk Estimate 3.6 RATIO (4.0-6.7); Chloride 105 mMol/L (98-107); Cholesterol 90 mg/dL (132-200); Creatinine (Component) 0.7 mg/dL (0.6-1.3); Estimated Creatinine Clearance 70.5 mL/min (>60); Globulin 3.8 gm/dL (2.3-3.5); Glucose 89 mg/dL (74-106); HDL Cholesterol 25 mg/dL (40-60); LDL Cholesterol,Calculated 55 mg/dL (0-130); Osmolality,Calculated 273 (275-295); Potassium 3.5 mMol/L (3.4-5.1); Sodium 138 mMol/L (136-145); Total Protein 6.2 gm/dL (5.7-8.2); Triglycerides 52 mg/dL (30-150); eGFR > 60 See Note
[2025-08-16 06:45] LABS: Slide Review Platelets confirmed
[2025-08-16] MEDS: POTASSIUM CHLORIDE 10% 20 MEQ/15 ML UDC 40 MEQ PO (08:08)
[2025-08-16] MEDS: cefTRIAXone/D5w 1gm IV premix 1 GM/50 ML BAG IV (08:09)
--- NOTE | 2025-08-16 14:37 | PC.SS ---
This is 80-year-old, , life partnered male who presented to the ED due to suffering from abdominal pain. Patient appeared alert and oriented to self, place and situation. Patient reported that he resides at home. Patient reported that he is independent with all ADLs, no DME use. Patient assigned his daughter, Ava ([phone]). Patient's PCP is at [facility]. When medically clear, patient will return home with his family. Discharge plan: return home.
--- NOTE | 2025-08-16 15:02 | ESPR_ITS ---
Documentation for date of: 08/16/25 Subjective Subjective Interval history: Patient seen and examined at bedside. Pleural fluid analysis showed transudative effusions, however may be inaccurate due to diuresis received on arrival. Chest x-ray post-thoracentesis showed increased lung volumes, however pleural effusion still present. Patient attempted to ambulate unsuccessfully. Started Lasix 40 mg IV twice daily. Echo showed EF 40-45%, started losartan 25 mg daily. Exam Vital Signs Temp Pulse Resp BP Pulse Ox O2 Del Method O2 Flow Rate 98.4 F 106 H 18 116/69 92 L Room Air 2 08/16/25 12:00 08/16/25 12:00 08/16/25 12:00 08/16/25 12:00 08/16/25 12:00 08/16/25 12:00 08/16/25 08:00 Narrative Exam General: Frail elderly man, temporal wasting. Awake and in no acute distress. Neurologic: GCS 15. Alert and oriented x3, no gross neurological deficit, and patient able to move all 4 extremities. HEENT: Normocephalic, atraumatic, mucous membranes moist. Pupils reactive to light. Heart: Regular rate and rhythm, normal S1 and S2, no murmurs. Lungs: No breath sounds in the left base, decreased breath sounds in the right base, bilateral apices clear to auscultation. Abdomen: Distended, trace positive fluid wave, nontender. No guarding or rebound tenderness. Extremities: No edema. 2+ radial and dorsalis pedis pulses bilaterally. Skin: Warm. Dry. No rash or ecchymoses. Objective Labs 08/16/25 04:25 08/16/25 04:25 Labs: Laboratory Results - last 24 hr 08/15/25 08/16/25 14:30 04:25 WBC 2.9 L RBC 2.80 L Hgb 8.7 L Hct 26.0 L MCV 93 MCH 31.1 MCHC 33.5 RDW Std Deviation 52.4 H Plt Count 45 L D Neut % (Auto) 74 Lymph % (Auto) 11 Mills % (Auto) 12 Eos % (Auto) 3 Baso % (Auto) 1 Neut # (Auto) 2.1 Lymph # (Auto) 0.3 L Mills # (Auto) 0.3 Eos # (Auto) 0.1 Baso # (Auto) 0.0 Immature Gran # (Auto) 0.01 H Absolute Nucleated RBC 0.00 Immature Gran % 0 Nucleated RBC % 0 Sodium 138 Potassium 3.5 Chloride 105 Carbon Dioxide 28.6 Anion Gap 4 L BUN 9 Creatinine 0.7 Estim Creat Clear Calc 70.5 eGFR > 60 BUN/Creatinine Ratio 13 Glucose 89 Calculated Osmolality 273 L Calcium 7.7 L Corrected Calcium 9.0 Total Bilirubin 1.0 D AST 28 ALT 7 L Alkaline Phosphatase 61 D Total Protein 6.2 Albumin 2.4 L Globulin 3.8 H Albumin/Globulin Ratio 0.6 L Triglycerides 52 Cholesterol 90 L LDL Cholesterol, Calc 55 HDL Cholesterol 25 L Cholesterol/HDL Ratio 3.6 L Pleural Color Yellow Pleural Appearance Cloudy Pleural WBC 207 Pleural RBC 7000 Pleural Polynuclear WBC 39 Pleural Mononuclear WBC 61 Pleural Total Protein < 2.0 Pleural LDH 50 Pleural Glucose 95 Pleural Amylase 24 Misc Test Result Platelets confirmed Quality Measures Quality Measures none Advance care planning discussed with:: patient Assessment & Plan Assessment Current Active Medications: Generic Name Dose Route Start Last Admin Trade Name Freq PRN Reason Stop Dose Admin Acetaminophen 1,000 mg 08/15/25 13:13 Acetaminophen 500 Mg Tablet PO 09/14/25 13:12 Q6H PRN Fever >101.5 Furosemide 40 mg 08/16/25 18:00 Furosemide 40 Mg Tablet PO 09/15/25 17:59 BIDD OLGA Ceftriaxone Sodium/Dextrose 1 gm in 50 mls @ 100 mls/hr 08/16/25 09:00 08/16/25 08:09 Rocephin/D5w 1gm Iv Premix IV 08/23/25 08:59 100 mls/hr QDAY OLGA Administration Metoprolol Succinate 25 mg 08/15/25 21:00 08/15/25 20:28 Metoprolol Succinate Xl 25 Mg Tabcr PO 09/14/25 20:59 Not Given HS OLGA Ondansetron HCl 4 mg 08/15/25 13:13 Ondansetron Inj 2 Mg/Ml Inj 2 Ml IVP 09/14/25 13:12 Q6H PRN NAUSEA OR VOMITING Protocol Plan Summary: 80-year-old male with a past medical history of Hypertension, cirrhosis with ascites, esophageal varices 4+ secondary to alcohol use disorder, CHF, HFrEF with an EF of 35-40%, who presented to the ED with chief complaint of water in his stomach and diffuse abdominal tenderness and pain during respiration. Thoracentesis was performed in the ED. Patient was admitted for observation of his acute decompensated cirrhosis secondary to alcohol use disorder. #Acute decompensated cirrhosis * Abdominal ultrasound showed moderate ascites * Fluid wave on exam * Patient mentions a history of alcohol use * May be contributing to pleural effusion and ascites Plan: * Patient received Lasix in the ED * Started Lasix 40 mg IV twice daily Reassessment: * Trend urine output, patient has a net positive fluid balance * Follow-up abdominal exam #Left transudative pleural effusion #Possible pneumonia * Patient has a history of ICU admission and thoracentesis that yielded 4 L of fluid in 2022 * Large left pleural effusion shown on x-ray, evidence of pneumonia on the right as well * Thoracentesis performed in the ED that yielded approximately 2 L of fluid, was sent for cytology, results showed a transudative pleural effusion, may be inaccurate due to diuresis, pleural fluid albumin pending * Patient had improvement in his pain on respiration status-post thoracentesis * Follow-up chest x-ray showed little improvement in lung volumes Plan: * Consider repeat thoracentesis * Ceftriaxone * Pleural fluid cultures pending - though preliminary results show transudative effusions, this may be inaccurate due to diuresis * Pleural fluid albumin pending * Diuresing: Lasix 40 mg p.o. twice daily Reassessment: * Patient attempted to ambulate, he walked 10 steps and became tachycardic with a rate of 147, a respiratory rate of 33, and desatted to 88% #History of HFrEF EF 35 to 40% #History of CHF * Echo in 2022 showed an EF of 35 to 40% * Per med rec, patient is not on GDMT for HFrEF * Patient has no signs of acute decompensated heart failure on exam, no peripheral edema, lung sounds outside of the pleural effusion are clear to auscultation, pleural effusion likely secondary to liver cirrhosis not acute decompensated heart failure Plan: * Metoprolol succinate 25 * Losartan 25 Reassessment: * BP sufficient for dual therapy * Repeat echo showed EF of 40-45% * Will discharge on GDMT #History of hypertension * Per chart review * Patient takes benazepril 20 mg daily Plan: * Holding for now #History of upper GI bleed #History of +4 bleeding esophageal varices secondary to #History of alcohol use disorder * Follows Dr. Leiva * Status post band ligation in 2022 Plan: * No direct intervention at this time #Normocytic anemia * Hemoglobin 10.3, MCV 94 Plan: * Appears to be a chronic issue * Will transfuse if hemoglobin below 7 Hospital Maintenance: DVT ppx: SCDs, holding chemical prophylaxis, may repeat thoracentesis. Diet: Cardiac diet IV lines: Peripheral IVs Code status: Full code Dispo: Patient unsuccessfully tried to ambulate today, desaturated and became tachycardic and tachypneic. May repeat thoracentesis, started Lasix 40 mg p.o. twice daily. Echo showed EF 40-45%, started losartan 25 mg daily. Patient was seen and discussed with my attending physician Dr. Don MCDONALD. Manpreet Altman DO PGY-1. Attending Provider Attestation/Addendum I, Samara Ochoa DO, attest that I was physically present for the gong portions of the service and evaluated the patient with the resident and I reviewed and discussed the case with the resident and agree with the resident's findings and plans of care as documented above Patient seen and evaluated this AM. Patient states he is doing well. However, he is noted to have tachycardia and desaturated to the 80s following 10 steps. Plan for repeat thorascentesis tomorrow. Will continue patient on IV diuretics and start on goal directed medical therapy given findings of EF 40-45%. Pending final echo read.
[2025-08-16] MEDS: FUROSEMIDE INJ 10 MG/ML 4ML VIAL 40 MG IVP (17:51)
[2025-08-16] MEDS: METOPROLOL SUCCINATE XL 25 MG TABCR PO (20:36)
--- NOTE | 2025-08-16 20:50 | PD.PUCONS ---
HPI Pulmonology Consult Data of Consult Requesting Physician: Trevon Maher MD Primary Care Provider: Rolo Ernandez MD Consult Narrative History of present illness: Patient is an 80 year old male with PMH HFrEF, thrombocytopenia, esophageal varices and alcoholic cirrhosis who presented with abdominal distention. Patient with significant bilateral pleural effusions on imaging and request for evaluation and treatment by pulmonology. Patient with stable oxygenation on room air. Patient with mild increased work of breathing at rest in ED bed. He reports dyspnea with exertion mostly. is at bedside and reports that he is quite limited with activity due to this. He has no cough, chest pain, chills, night sweats, or recent fevers. Patient without recent sick contacts and no travel. Patient with prior thoracentesis historically and well tolerated. He is not on any blood thinner and denied history of easy bleeding or bruising. Patient with no pertinent smoking history and no history of malignancy. Patient lives with life partner and family locally available. cc:: cc: Trevon Maher MD Review of Systems Review of Systems Narrative Review of Systems: Pertinent review of systems was completed, significant findings included in HPI above. Past Medical History Past Medical History Comments PMH COMMENT: PMH, PSH, and Social history reviewed. See HPI above for details. Fam Hx noncontributory. Meds Home Medications and Allergies Allergies Allergy/AdvReac Type Severity Reaction Status Date / Time hypertonic saline nebulized AdvReac Severe Difficulty Uncoded 08/15/25 08:54 Breathing Exam Vital Signs Temp Pulse Resp BP Pulse Ox O2 Del Method O2 Flow Rate 97.8 F 100 18 97/64 90 L Room Air 2 08/17/25 12:00 08/17/25 12:00 08/17/25 12:00 08/17/25 12:00 08/17/25 12:00 08/17/25 12:00 08/17/25 04:00 Narrative Exam General: No acute distress, sitting upright du eto urinary frequency after lasix Eye: PERRL, EOMI HENT: NC/AT, moist mucu smembranes Neck: Supple, non-tender, no JVD Lungs: Absent breath sounds at both bases Heart: S1/S2+ RRR no R/M/G Abdomen: Soft,mild distention, no tender, BS distant Musculoskeletal: Normal range of motion and strength, no tenderness or swelling Skin: Skin is warm, dry, no rashes or lesions Neurologic: Nonfocal on gross examination Psychiatric: Appropriate mood and affect Physical Exam Completion Physical Exam Complete?: Yes Results - [employer] Labs 08/19/25 04:50 08/19/25 04:50 Labs: Short CBC 08/17/25 Range/Units 09:24 WBC 3.2 L (3.8-10.6) Thou/mm3 Hgb 10.4 L (13.5-16.0) g/dL Hct 30.7 L (41.0-53.0) % Plt Count 74 L D (140-440) Thou/mm3 BMP 08/17/25 09:24 Sodium 136 Potassium 3.0 L D Chloride 98 Carbon Dioxide 31.3 H BUN 9 Creatinine 0.8 Glucose 131 H Calcium 7.9 L Liver Function 08/17/25 Range/Units 09:24 Total Bilirubin 1.1 (0.3-1.2) mg/dL AST 36 H (0-34) U/L ALT 11 (10-49) U/L Alkaline Phosphatase 71 (46-116) U/L Albumin 2.8 L (3.4-4.8) gm/dL Assessment & Plan Additional Plan Additional Plan: Bilateral pleural effusions For patient's comfort will proceed with thoracentesis, pocket identified on left with ultrasound/ site marked He is agreeable to procedure Consent obtained at bedside in ED Procedure done in ED pending admission to bed Send fluid for analysis for assessment of transudative versus exudative process Thank you for allowing me to participate in the care of this patient, I remain available for any questions should they arise Provider Notation Provider Notation: Although this document has been carefully reviewed, there may still be some phonetic and other typographical errors. These errors are purely grammatical due to imperfections in the software program and should not be construed in any way to compromise the substance of the patient's medical care during this visit. Thank you for the opportunity and privilege in assisting you with this patient's care and management.
--- NOTE | 2025-08-16 23:24 | PC.NURSE ---
80% O2 sat on room air, pt asleep- Applied O2 inh on at 2L/min/nc.
[2025-08-17] VITALS (12 sets, daily range): BP systolic 89–106; BP diastolic 60–77; PULSE 83–103; RESP 17–99; TEMP 36.1–36.6; O2SAT 90–96
[2025-08-17] MEDS: FUROSEMIDE INJ 10 MG/ML 4ML VIAL 40 MG IVP (06:21)
--- NOTE | 2025-08-17 06:24 | PC.NURSE ---
95% O2 sat on 2L/min/nc- Discontinued O2 inh with 92% O2 sat on room air.
[2025-08-17] MEDS: LOSARTAN POTASSIUM 25 MG TABLET PO (08:20)
[2025-08-17] MEDS: cefTRIAXone/D5w 1gm IV premix 1 GM/50 ML BAG IV (08:20)
[2025-08-17 10:27] LABS: Basophils # (Auto) 0.0 Thou/mm3 (0.0-0.2); Basophils % (Auto) 1 % (0-2.5); Eosinophils # (Auto) 0.1 Thou/mm3 (0.0-0.5); Eosinophils % (Auto) 4 % (0-10); Hematocrit 30.7 % (41.0-53.0); Hemoglobin 10.4 g/dL (13.5-16.0); Immature Granulocytes Auto 0.01 Thou/mm3 (0.00-0.00); Lymphocytes # (Auto) 0.5 Thou/mm3 (1.0-4.8); Lymphocytes % (Auto) 15 % (10-50); Mean Corpuscular HGB Conc 33.9 g/dl (31.0-37.0); Mean Corpuscular Hemoglobin 31.7 pg (25.0-35.0); Mean Corpuscular Volume 94 fL (80-100); Monocytes # (Auto) 0.4 Thou/mm3 (0.0-0.8); Monocytes % (Auto) 11 % (0-12); Neutrophils # (Auto) 2.2 Thou/mm3 (1.8-7.7); Neutrophils % (Auto) 69 % (37-80); Nucleated Red Blood Cell # 0.00 Thou/mm3 (0.00-0.00); Nucleated Red Blood Cell % 0 /100 WBC (0); RDW Standard Deviation 53.1 fL (35.1-43.9); Red Blood Count 3.28 Miln/mm3 (4.50-5.90); White Blood Count 3.2 Thou/mm3 (3.8-10.6)
[2025-08-17 10:28] LABS: Platelet Count 74 Thou/mm3 (140-440)
[2025-08-17 10:51] LABS: Alanine Aminotransferase 11 U/L (10-49); Albumin, Serum 2.8 gm/dL (3.4-4.8); Albumin/Globulin Ratio 0.6 (1.2-2.2); Alkaline Phosphatase 71 U/L (46-116); Anion Gap 7 (7-16); Aspartate Amino Transferase 36 U/L (0-34); BUN/Creatinine Ratio 11 Ratio (12-20); Bilirubin,Total 1.1 mg/dL (0.3-1.2); Blood Urea Nitrogen 9 mg/dL (9-23); Calcium 7.9 mg/dL (8.3-10.6); Calcium (Corrected) 8.9 mg/dL (8.5-10.1); Carbon Dioxide 31.3 mMol/L (20.0-31.0); Chloride 98 mMol/L (98-107); Creatinine (Component) 0.8 mg/dL (0.6-1.3); Estimated Creatinine Clearance 61.7 mL/min (>60); Globulin 4.6 gm/dL (2.3-3.5); Glucose 131 mg/dL (74-106); Osmolality,Calculated 272 (275-295); Potassium 3.0 mMol/L (3.4-5.1); Sodium 136 mMol/L (136-145); Total Protein 7.4 gm/dL (5.7-8.2); eGFR > 60 See Note
[2025-08-17 11:54] LABS: Slide Review Platelets confirmed
[2025-08-17 13:34] LABS: Cocci Serology, IgG Negative (Negative)
--- NOTE | 2025-08-17 14:35 | XR_ITS ---
EXAMINATION: AP chest single view TECHNIQUE: AP portable sitting chest single view Date and time: August 17, 2025, 1606 hours INDICATIONS: Post right thoracentesis FINDINGS: No pneumothorax post thoracentesis Large left pleural effusion Normal heart size Atelectasis left lower lobe IMPRESSION: No pneumothorax post thoracentesis
--- NOTE | 2025-08-17 15:13 | ESCONSULT_ITS ---
<Statement entered by So Diane MD - 08/18/25 17:33> Patient is examined and MedSurg floor with resident physician PGY 2 DR. MAGUIRE, patient is admitted has multiple problems including large pleural effusion ascites HFrEF ejection fraction 40% clinically stable not have any clinical heart failure symptoms has some JVD not have any chest pain shortness of I agree with treatment plan recommendation as documented we will continue to monitor the patient closely with resident physician and hospitalist team HPI Data of Consult Requesting Physician: Samara Ochoa DO Admitting Provider: Samara Ochoa DO Attending Provider: Samara Ochoa DO Primary Care Provider: Rolo Ernandez MD Consult Narrative Reason for consult: HFpEF History of present illness: 80-year-old male with past medical history of hypertension, decompensated liver cirrhosis secondary to alcohol use disorder, esophageal varices, HFpEF EF 40 to 45% presented to the ED apparently on 08/15 with diffuse abdominal tenderness and ascites. In the ED a large left pleural effusion was seen incidentally on chest x-ray along with right basilar pneumonia. Patient was admitted initially for observation but decision was made to complete a thoracentesis to remove symptomatic pleural effusion. Cardiology was later consulted as echo showed HFpEF although the patient currently is not in acute heart failure exacerbation as noted by clinical exam showing no signs of acute heart failure (no JVD, peripheral edema and the patient is currently on room air). Patient later had a second thoracentesis which showed serosanguineous fluid as comparison to the first thoracentesis which was transudative. [facility] has been consulted for recommendations as well. Past medical history: As stated above Past surgical history: Hernia repair Allergies: Hypertonic saline nebulized because of difficulty breathing Medications: As listed Family history: Noncontributory Social history: Patient denies any active alcohol use but has extensive history in the past, denies any tobacco or illicit drug use ROS: All 12 systems assessed and the patient denies unless otherwise stated in HPI cc:: cc: Samara Ochoa DO Exam Vital Signs Temp Pulse Resp BP Pulse Ox O2 Del Method O2 Flow Rate 97.8 F 100 18 97/64 90 L Room Air 2 08/17/25 12:00 08/17/25 12:00 08/17/25 12:00 08/17/25 12:00 08/17/25 12:00 08/17/25 12:00 08/17/25 04:00 Narrative Exam Physical Exam: GENERAL: Awake, answering questions appropriately in [place], appears frail HEENT: NC/AT. Moist mucosa. PERRLA/EOMI. mildly anicteric sclera CARDIO: Heart RRR, no obvious murmurs, no JVD. PULM: No coughing or visible SOB. Decreased breath sounds on bilateral lower lung rome, no wheeze/rales/rhonchi GI: Abdomen soft, mildly distended but nontender on palpation, borborygmi apparent SKIN/MSK/EXT: Mild discoloration of the skin, jaundice. No wounds/edema/amputations noted. +Pedal pulses present B/L. NEURO: Oriented x3, Moves extremities x4, no focal neurologic deficits noted Results Labs 08/17/25 09:24 08/17/25 09:24 Labs: Short CBC 08/17/25 Range/Units 09:24 WBC 3.2 L (3.8-10.6) Thou/mm3 Hgb 10.4 L (13.5-16.0) g/dL Hct 30.7 L (41.0-53.0) % Plt Count 74 L D (140-440) Thou/mm3 BMP 08/17/25 09:24 Sodium 136 Potassium 3.0 L D Chloride 98 Carbon Dioxide 31.3 H BUN 9 Creatinine 0.8 Glucose 131 H Calcium 7.9 L Liver Function 08/17/25 Range/Units 09:24 Total Bilirubin 1.1 (0.3-1.2) mg/dL AST 36 H (0-34) U/L ALT 11 (10-49) U/L Alkaline Phosphatase 71 (46-116) U/L Albumin 2.8 L (3.4-4.8) gm/dL Quality Measures Quality Measures none Advance care planning discussed with:: patient Medications Home Medications and Allergies Home Medications ?Medication ?Instructions ?Recorded ?Confirmed ?Type lovastatin 20 mg tablet 20 mg PO QPM 05/17/22 History tamsulosin 0.4 mg capsule 0.4 mg PO QHS 03/08/2308/15 History benazepril 20 mg tablet 20 mg PO QDAY 02/13/2508/15 History Allergies Allergy/AdvReac Type Severity Reaction Status Date / Time hypertonic saline nebulized AdvReac Severe Difficulty Uncoded 08/15/25 08:54 Breathing Visit Medications Acetaminophen (Acetaminophen 500 Mg Tablet) 1,000 mg PO Q6H PRN PRN Reason: Fever >101.5 Stop: 09/14/25 13:12 Furosemide (Furosemide Inj 10 Mg/Ml 4ml Vial) 40 mg IVP [facility]D [facility] Stop: 09/15/25 17:59 Last Admin: 08/17/25 06:21 Dose: 40 mg Ceftriaxone Sodium/Dextrose (Rocephin/D5w 1gm Iv Premix) 1 gm in 50 mls @ 100 mls/hr IV QDAY [facility] Stop: 08/23/25 08:59 Last Admin: 08/17/25 08:20 Dose: 100 mls/hr Losartan Potassium (Losartan Potassium 25 Mg Tablet) 25 mg PO QDAY [facility] Stop: 09/16/25 08:59 Last Admin: 08/17/25 08:20 Dose: 25 mg Metoprolol Succinate (Metoprolol Succinate Xl 25 Mg Tabcr) 25 mg PO HS [facility] Stop: 09/14/25 20:59 Last Admin: 08/16/25 20:36 Dose: 25 mg Ondansetron HCl (Ondansetron Inj 2 Mg/Ml Inj 2 Ml) 4 mg IVP Q6H PRN; Protocol PRN Reason: NAUSEA OR VOMITING Stop: 09/14/25 13:12 Discontinued Medications Furosemide (Furosemide 20 Mg Tablet) 20 mg PO X1 ONE Stop: 08/15/25 11:45 Furosemide (Furosemide 40 Mg Tablet) 40 mg PO X1 ONE Stop: 08/15/25 11:47 Last Admin: 08/15/25 12:40 Dose: 40 mg Furosemide (Furosemide 40 Mg Tablet) 40 mg PO [facility]D [facility] Stop: 09/15/25 17:59 Ceftriaxone Sodium/Dextrose (Rocephin/D5w 1gm Iv Premix) 1 gm in 50 mls @ 100 mls/hr IV X1 ONE Stop: 08/15/25 12:26 Last Infusion: 08/15/25 13:06 Dose: Infused Doxycycline Hyclate 100 mg/ (Sodium Chloride) 100 mls @ 100 mls/hr IV X1 ONE Stop: 08/15/25 12:56 Last Infusion: 08/15/25 15:07 Dose: Infused Potassium Chloride (Potassium Chloride 10% 20 Meq/15 Ml Udc) 40 meq PO X1 ONE Stop: 08/16/25 08:01 Last Admin: 08/16/25 08:08 Dose: 40 meq Potassium Chloride (Potassium Chloride 20 Meq Tabcr) 40 meq PO X1 ONE Stop: 08/17/25 09:06 Assessment & Plan Plan 80-year-old male with past medical history of hypertension, decompensated liver cirrhosis secondary to alcohol use disorder, esophageal varices, HFpEF EF 40 to 45% admitted for symptomatic pleural effusion likely secondary to liver failure versus malignancy but less likely to be secondary to heart failure #HFpEF, global hypokinesis and moderately reduced systolic function Class III NYHA Heart Failure Classification Patient previously had an echo which showed HFrEF with an EF of 35-40 On exam, patient does not appear to be in acute heart failure exacerbation as there is no JVD, crackles on lung auscultation, patient's on room air and there is no lower extremity edema noted ECHO on 08/15/2025 is normal by two-dimensional, color flow imaging, and Doppler interrogation. Left ventricular systolic function is moderately reduced with visually estimated ejection fraction of 40-45%. The apex, inferior wall, anterior wall, anteroseptal wall, inferolateral wall, mid inferoseptal, and mid anterolateral wall are hypokinetic. Right ventricle size is normal, and systolic function is normal. There is mild aortic valve sclerosis with no stenosis. There is mild mitral valve regurgitation. Plan: Restart GDMT as tolerable Consider beta-belkys such as carvedilol as this medication can serve to address both HFpEF and esophageal variceal prophylaxis Add MARILU/ARB if blood pressure allows Consider spironolactone Outpatient follow-up with cardiology within 1 to 2 weeks of discharge #Acute decompensated liver cirrhosis #Esophageal varices #Left pleural effusion #Possible pneumonia #Hypertension #History of alcohol use disorder #Normocytic anemia, likely blood loss anemia Rest of medical problems to be managed by both the hospitalist and gastroenterology team Patient seen and assessed with attending Dr. Benedicto Magurie, DO PGY-2 Internal Medicine - [facility]
--- NOTE | 2025-08-17 15:38 | ESPR_ITS ---
Documentation for date of: 08/17/25 Subjective Subjective Interval history: Patient with continued recurrence of bilateral effusions. Thoracentesis on the left with significant relief but reacumulation on imaging. He was ambulated by housestaff yesterday with desaturation on RA. Patient resting in bed currently in no distress. Pires shave dyspnea with exertion. Trying to diurese with prior fluid analysis consistent with transudate. Critical Care Note Critical care time (min.): 0 Exam Vital Signs Temp Pulse Resp BP Pulse Ox O2 Del Method O2 Flow Rate 97.8 F 100 18 97/64 90 L Room Air 2 08/17/25 12:00 08/17/25 12:00 08/17/25 12:00 08/17/25 12:00 08/17/25 12:00 08/17/25 12:00 08/17/25 04:00 Narrative Exam General: No acute distress, upright in bed Eye: PERRL, EOMI HENT: NC/AT, mmm Neck: Supple, non-tender, no JVD Lungs: Absent breath sounds at both bases, dull to percussion more than 50% of right hemithorax Heart: S1/S2+ RRR no R/M/G Abdomen: Soft, no distention, no tender, BS distant Musculoskeletal: Normal range of motion and strength, no tenderness or swelling Skin: Skin is warm, dry, no rashes or lesions Neurologic: Nonfocal on gross examination Psychiatric: Appropriate mood and affect Physical Exam Completion Physical Exam Complete?: Yes Objective - [employer] Labs 08/19/25 04:50 08/19/25 04:50 Labs: Laboratory Results - last 24 hr 08/15/25 08/17/25 09:51 09:24 WBC 3.2 L RBC 3.28 L Hgb 10.4 L Hct 30.7 L MCV 94 MCH 31.7 MCHC 33.9 RDW Std Deviation 53.1 H Plt Count 74 L D Neut % (Auto) 69 Lymph % (Auto) 15 [place] % (Auto) 11 Eos % (Auto) 4 Baso % (Auto) 1 Neut # (Auto) 2.2 Lymph # (Auto) 0.5 L [place] # (Auto) 0.4 Eos # (Auto) 0.1 Baso # (Auto) 0.0 Immature Gran # (Auto) 0.01 H Absolute Nucleated RBC 0.00 Immature Gran % 0 Nucleated RBC % 0 Sodium 136 Potassium 3.0 L D Chloride 98 Carbon Dioxide 31.3 H Anion Gap 7 BUN 9 Creatinine 0.8 Estim Creat Clear Calc 61.7 eGFR > 60 BUN/Creatinine Ratio 11 L Glucose 131 H Calculated Osmolality 272 L Calcium 7.9 L Corrected Calcium 8.9 Total Bilirubin 1.1 AST 36 H ALT 11 Alkaline Phosphatase 71 Total Protein 7.4 Albumin 2.8 L Globulin 4.6 H Albumin/Globulin Ratio 0.6 L Coccidioides IgG Ab Negative Misc Test Result Platelets confirmed Impression Impression: Bilateral pleural effusions Acute hypoxic respiratory failure Favor chronic component to fluid accumulation Proceed with right thoracentesis for therapeutic reasons, monitor re-accmulation Needs for aggressive diuretic regimen, likely combination of hear failure and cirrhosis/ known prtal hypertension with varices Optimize nutrition, albumin very low due to liver disease Differ half-way management to medicine team I will sign off for now, if any questions arise, I remain available to be contacted Assessment & Plan Additional Plan Additional Plan: PLAN: See MD orders and discussion above. Will continue supportive care of the organ system problems, diagnoses, and failures noted above. [A central line continues to be necessary for infusion of medications and IV fluids, it is to be removed when other adequate venous access is accomplished.] [Cannot be safely managed without restraints as potential for harm secondary to inadvertent movement and loss of tubes and lines outweighs the burdens of restraint.] This patient is critically ill and required [] minutes of my time to provide documentation, evaluate, manage and maintain or prevent deterioration of the organ systems and problems noted above. This critical care time does not include time I spent performing procedures that are reported separately. [If vincent catheter present, it remains necessary to monitor urine output continuously, and/or divert urine from the skin. It will be removed per policy when it is not needed for these purposes.] Provider Notation Provider Notation: Although this document has been carefully reviewed, there may still be some phonetic and other typographical errors. These errors are purely grammatical due to imperfections in the software program and should not be construed in any way to compromise the substance of the patient's medical care during this visit. Thank you for the opportunity and privilege in assisting you with this patient's care and management.
[2025-08-17 15:57] LABS: Pleural Fluid WBC 372 /cmm
[2025-08-17 15:58] LABS: Pleural Fluid Color Red
[2025-08-17 15:59] LABS: Pleural Fluid Appearance Bloody; Pleural Fluid Mononuclear 83 %; Pleural Fluid Polynuclear 17 %; Pleural Fluid RBC 39000 /cmm
[2025-08-17 16:12] LABS: Albumin, Peritoneal Fluid < 1.0 gm/dL; Amylase,Pleural Fluid 31 IU/L; Glucose,Pleural Fluid 105 mg/dL; LDH,Pleural Fluid 80 IU/L; Protein Total,Pleural Fluid 2.2 g/dL
--- NOTE | 2025-08-17 16:28 | ESPR_ITS ---
<Statement entered by Elvia Mckinley MD - 08/17/25 16:48> Patient seen at bedside currently saturating on room air denies any shortness of breath. Patient's and son are also at bedside. Hemoglobin is stable, repeat thoracentesis is scheduled for today's. Due to echo findings compared to previous echo and repeat echo this hospital admission patient has not been seen by a acute care nurse therefore we will consult acute care nurse inpatient. Patient is started on GDMT. Will continue Rocephin for SBP prophylaxis in the setting of decompensated liver cirrhosis. Patient was seen and examined by me personally. I have directly supervised and reviewed documentation by the team resident and agree with its findings. ------- Plan of care was discussed with the attending, Dr. Don Mckinley, PGY-2 Documentation for date of: 08/17/25 Subjective Subjective Interval history: Patient seen and examined at bedside. Repeated thoracentesis today. Will change metoprolol to Coreg, cardiology consulted. Will start Protonix due to history of bleeding esophageal varices. Exam Vital Signs Temp Pulse Resp BP Pulse Ox O2 Del Method O2 Flow Rate 97.8 F 100 18 97/64 90 L Room Air 2 08/17/25 12:00 08/17/25 12:00 08/17/25 12:00 08/17/25 12:00 08/17/25 12:00 08/17/25 12:00 08/17/25 04:00 Narrative Exam General: Frail elderly man, temporal wasting. Awake and in no acute distress. Neurologic: GCS 15. Alert and oriented x3, no gross neurological deficit, and patient able to move all 4 extremities. HEENT: Normocephalic, atraumatic, mucous membranes moist. Pupils reactive to light. Heart: Regular rate and rhythm, normal S1 and S2, no murmurs. Lungs: No breath sounds in the left base, decreased breath sounds in the right base, bilateral apices clear to auscultation. Abdomen: Nondistended, nontender. No guarding or rebound tenderness. Extremities: No edema. 2+ radial and dorsalis pedis pulses bilaterally. Skin: Warm. Dry. No rash or ecchymoses. Objective Labs 08/18/25 09:15 08/18/25 09:15 Labs: Laboratory Results - last 24 hr 11/06/0108/17/25 08/17/25 09:51 09:24 14:30 WBC 3.2 L RBC 3.28 L Hgb 10.4 L Hct 30.7 L MCV 94 MCH 31.7 MCHC 33.9 RDW Std Deviation 53.1 H Plt Count 74 L D Neut % (Auto) 69 Lymph % (Auto) 15 [place] % (Auto) 11 Eos % (Auto) 4 Baso % (Auto) 1 Neut # (Auto) 2.2 Lymph # (Auto) 0.5 L [place] # (Auto) 0.4 Eos # (Auto) 0.1 Baso # (Auto) 0.0 Immature Gran # (Auto) 0.01 H Absolute Nucleated RBC 0.00 Immature Gran % 0 Nucleated RBC % 0 Sodium 136 Potassium 3.0 L D Chloride 98 Carbon Dioxide 31.3 H Anion Gap 7 BUN 9 Creatinine 0.8 Estim Creat Clear Calc 61.7 eGFR > 60 BUN/Creatinine Ratio 11 L Glucose 131 H Calculated Osmolality 272 L Calcium 7.9 L Corrected Calcium 8.9 Total Bilirubin 1.1 AST 36 H ALT 11 Alkaline Phosphatase 71 Total Protein 7.4 Albumin 2.8 L Globulin 4.6 H Albumin/Globulin Ratio 0.6 L Peritoneal Albumin < 1.0 Pleural Color Red Pleural Appearance Bloody Pleural WBC 372 Ple[place] RBC 56935 Pleural Polynuclear WBC 17 Pleural Mononuclear WBC 83 Pleural Total Protein 2.2 Pleural LDH 80 Pleural Glucose 105 Pleural Amylase 31 Coccidioides IgG Ab Negative Misc Test Result Platelets confirmed Quality Measures Quality Measures none Advance care planning discussed with:: patient Assessment & Plan Assessment Current Active Medications: Generic Name Dose Route Start Last Admin Trade Name Freq PRN Reason Stop Dose Admin Acetaminophen 1,000 mg 08/15/25 13:13 Acetaminophen 500 Mg Tablet PO 09/14/25 13:12 Q6H PRN Fever >101.5 Furosemide 40 mg 08/16/25 18:00 08/17/25 06:21 Furosemide Inj 10 Mg/Ml 4ml Vial IVP 09/15/25 17:59 40 mg BIDD OLGA Administration Ceftriaxone Sodium/Dextrose 1 gm in 50 mls @ 100 mls/hr 08/16/25 09:00 08/17/25 08:20 Rocephin/D5w 1gm Iv Premix IV 08/23/25 08:59 100 mls/hr QDAY OLGA Administration Losartan Potassium 25 mg 08/17/25 09:00 08/17/25 08:20 Losartan Potassium 25 Mg Tablet PO 09/16/25 08:59 25 mg QDAY OLGA Administration Metoprolol Succinate 25 mg 08/15/25 21:00 08/16/25 20:36 Metoprolol Succinate Xl 25 Mg Tabcr PO 09/14/25 20:59 25 mg HS OLGA Administration Ondansetron HCl 4 mg 08/15/25 13:13 Ondansetron Inj 2 Mg/Ml Inj 2 Ml IVP 09/14/25 13:12 Q6H PRN NAUSEA OR VOMITING Protocol Plan Summary: 80-year-old male with a past medical history of Hypertension, cirrhosis with ascites, esophageal varices 4+ secondary to alcohol use disorder, CHF, HFrEF with an EF of 35-40%, who presented to the ED with chief complaint of water in his stomach and diffuse abdominal tenderness and pain during respiration. Thoracentesis was performed in the ED. Patient was admitted for observation of his acute decompensated cirrhosis secondary to alcohol use disorder. #Acute decompensated cirrhosis * Abdominal ultrasound showed moderate ascites * Abdomen no longer distended * Patient mentions a history of alcohol use * May be contributing to pleural effusion and ascites Plan: * Patient received Lasix in the ED * Continue Lasix 40 mg IV twice daily Reassessment: * Trend urine output * Follow-up abdominal exam #Left transudative pleural effusion #Possible pneumonia * Patient has a history of ICU admission and thoracentesis that yielded 4 L of fluid in 2022 * Large left pleural effusion shown on x-ray, evidence of pneumonia on the right as well * Thoracentesis performed in the ED that yielded approximately 2 L of fluid, was sent for cytology, results showed a transudative pleural effusion, may be inaccurate due to diuresis, pleural fluid albumin pending * Patient had improvement in his pain on respiration status-post thoracentesis * Follow-up chest x-ray showed little improvement in lung volumes * Patient had a second thoracentesis on 08/17/2025 that yielded 2 L of red fluid from the right pleural space * Follow-up chest x-ray showed no pneumothorax on the right, large left pleural effusion is still present Plan: * Ceftriaxone * Pleural fluid cultures pending - though preliminary results show transudative effusions, this may be inaccurate due to diuresis * Pleural fluid albumin pending * Diuresing: Lasix 40 mg p.o. twice daily Reassessment: * Patient attempted to ambulate, he walked 10 steps and became tachycardic with a rate of 147, a respiratory rate of 33, and desatted to 88% on 08/16/2025 * Right thoracentesis pleural fluid sent for cytology #History of HFrEF EF 35 to 40% #History of CHF * Echo in 2022 showed an EF of 35 to 40% * Per med rec, patient is not on GDMT for HFrEF * Patient has no signs of acute decompensated heart failure on exam, no peripheral edema, lung sounds outside of the pleural effusion are clear to auscultation, pleural effusion likely secondary to liver cirrhosis not acute decompensated heart failure Plan: * Discontinued metoprolol succinate 25 on 08/17/2025 * Coreg 3.125 mg twice daily with meals started on 08/17/2025 * Losartan 25 milligrams p.o. daily * Cardiology consult Reassessment: * Monitor blood pressure * Repeat echo showed EF of 40-45% * Will discharge on GDMT #History of hypertension * Per chart review * Patient takes benazepril 20 mg daily Plan: * Holding for now * Started Coreg 3.125 p.o. twice daily with meals on 08/17/2025 #History of upper GI bleed #History of +4 bleeding esophageal varices secondary to #History of alcohol use disorder Follows Dr. Leiva * Status post band ligation in 2022 Plan: * Started Protonix 40 mg IV daily for 08/18/2025 #Normocytic anemia * Hemoglobin 10.3, MCV 94 Plan: * Appears to be a chronic issue * Will transfuse if hemoglobin below 7 Hospital Maintenance: DVT ppx: SCDs, holding chemical prophylaxis, may repeat thoracentesis. Diet: Cardiac diet IV lines: Peripheral IVs Code status: Full code Dispo: Patient underwent thoracentesis on the right and 2 L of fluid were drained. Metoprolol was switched to Coreg. Protonix was started. Cardiology consulted. Continuing diuresis. Patient was seen and discussed with my attending physician Dr. Don MCDONALD and my senior resident Dr. Elías ORTIZ PGY-2. Manpreet Altman DO PGY-1. Attending Provider Attestation/Addendum Wagner, Samara Ochoa DO, attest that I was physically present for the gong portions of the service and evaluated the patient with the resident and I reviewed and discussed the case with the resident and agree with the resident's findings and plans of care as documented above Patient seen and eval this a.m. Patient will have thoracentesis at bedside done this afternoon due to tachycardia and desaturation upon taking 10 steps yesterday. Patient states that he does not take any medication, nor does he follow-up with any specialists. He previously had ejection fraction of 35 to 40%, currently 40 to 45%. Started patient on losartan and metoprolol which she has been tolerating. Continue with Lasix 40 mg IV push twice daily. If patient remains stable in a.m. following thoracentesis, anticipate discharge home. Patient has no acute complaints at this time and is saturating well on room air at rest. Cardiology has been consulted due to HFrEF.
--- NOTE | 2025-08-17 16:29 | PD.RESPROC ---
PROCEDURES: Procedure Date / Time 08/17/25 1629 Procedure Narrative Procedure Narrative: Attending Attestation: I was present for entire procedure. Patient tolerated procedure well with no immediate complications. Fluid analysis to be done. Pulm follow-up chest x-ray shows no significant pneumothorax with persistent left large pleural effusion and basilar atelectasis/compressive atelectasis. Patient remains stable on room air. Thoracentesis Indication(s): symptomatic Pleural Effusion Informed consent obtained from: patient Time out done, and the following verified: correct patient, side and site, procedure, patient position and implants and/or equipment Ultrasound used: Yes Procedure location: rt. post pleural space Amount pleural fluid removed (ml): 2,000 EBL(ml): 1 Procedure comment: The patient was identified and informed consent was obtained after discussing the risks, benefits, and alternatives of the procedure. The procedure site was confirmed and marked, and the patient was positioned comfortably in the sitting position with arms resting on a table. The effusion identified on ultrasound on the right lateral posterior chest wall. The skin was prepped and draped after donning a surgical gown and gloves. The area was anesthetized with lidocaine. The needle and catheter were introduced into the pleural space at the selected site. Approximately 2 L of pleural fluid was drained. A sample was sent for cytology analysis. The patient tolerated the procedure well. No pneumothorax was identified on follow-up chest x-ray. I was supervised and assisted by my attending physician Dr. Nika ORTIZ. Manpreet lAtman DO PGY-1
[2025-08-18] VITALS (13 sets, daily range): BP systolic 87–107; BP diastolic 56–76; PULSE 87–109; RESP 16–37; TEMP 36.1–37; O2SAT 94–99
[2025-08-18 06:12] LABS: LDH (Lactate Dehydrogenase) 183 U/L (120-246); Total Protein 6.3 gm/dL (5.7-8.2)
--- NOTE | 2025-08-18 07:59 | PC.NURSE ---
spoke with , hold coreg and janna d/t low bp
[2025-08-18] MEDS: cefTRIAXone/D5w 1gm IV premix 1 GM/50 ML BAG IV (08:08)
--- NOTE | 2025-08-18 08:14 | ESPR_ITS ---
<Statement entered by So Diane MD - 08/18/25 17:36> The patient is personally examined evaluated by me on telemetry MedSurg floor patient is clinically doing well did have a thoracentesis also ascites appears to be better there is some JVD but not have any chest pain shortness tolerating the beta-blockers and very well that well and low-dose carvedilol also spironolactone tolerating well. Overall patient is clinically stable not have any further episodes of shortness or chest pain no leg swelling. Evaluate the patient with resident physician PGY [address] MAGUIRE agree with the treatment plan recommendation as documented Documentation for date of: 08/18/25 Subjective Subjective Interval history: Patient seen and assessed in hospital bed denies having any concerning symptoms at this time. Continue treatment of HFpEF with guideline based medical therapy superimposed with decompensated liver cirrhosis. Patient could benefit from outpatient cardiology referral from primary care provider. Exam Vital Signs Temp Pulse Resp BP Pulse Ox O2 Del Method O2 Flow Rate 97 F 95 20 94/57 L 99 Nasal Cannula 2 08/18/25 07:53 08/18/25 07:53 08/18/25 07:53 08/18/25 07:53 08/18/25 07:53 08/18/25 07:53 08/18/25 07:53 Narrative Exam Physical Exam: GENERAL: Awake, answering questions appropriately in [place], appears frail HEENT: NC/AT. Moist mucosa. PERRLA/EOMI. mildly anicteric sclera CARDIO: Heart RRR, no obvious murmurs, no JVD. PULM: No coughing or visible SOB. Decreased breath sounds on bilateral lower lung rome, no wheeze/rales/rhonchi GI: Abdomen soft, mildly distended but nontender on palpation, borborygmi apparent SKIN/MSK/EXT: Mild discoloration of the skin, jaundice. No wounds/edema/amputations noted. +Pedal pulses present B/L. NEURO: Oriented x3, Moves extremities x4, no focal neurologic deficits noted Objective Labs 08/18/25 09:15 08/18/25 09:15 Labs: Laboratory Results - last 24 hr 08/15/25 08/17/25 08/17/25 09:51 09:24 14:30 WBC 3.2 L RBC 3.28 L Hgb 10.4 L Hct 30.7 L MCV 94 MCH 31.7 MCHC 33.9 RDW Std Deviation 53.1 H Plt Count 74 L D Neut % (Auto) 69 Lymph % (Auto) 15 [place] % (Auto) 11 Eos % (Auto) 4 Baso % (Auto) 1 Neut # (Auto) 2.2 Lymph # (Auto) 0.5 L [place] # (Auto) 0.4 Eos # (Auto) 0.1 Baso # (Auto) 0.0 Immature Gran # (Auto) 0.01 H Absolute Nucleated RBC 0.00 Immature Gran % 0 Nucleated RBC % 0 Sodium 136 Potassium 3.0 L D Chloride 98 Carbon Dioxide 31.3 H Anion Gap 7 BUN 9 Creatinine 0.8 Estim Creat Clear Calc 61.7 eGFR > 60 BUN/Creatinine Ratio 11 L Glucose 131 H Calculated Osmolality 272 L Calcium 7.9 L Corrected Calcium 8.9 Total Bilirubin 1.1 AST 36 H ALT 11 Alkaline Phosphatase 71 Lactate Dehydrogenase Total Protein 7.4 Albumin 2.8 L Globulin 4.6 H Albumin/Globulin Ratio 0.6 L Peritoneal Albumin < 1.0 Pleural Color Red Pleural Appearance Bloody Pleural WBC 372 Pleural RBC 33369 Pleural Polynuclear WBC 17 Pleural Mononuclear WBC 83 Pleural Total Protein 2.2 Pleural LDH 80 Pleural Glucose 105 Pleural Amylase 31 Coccidioides IgG Ab Negative Misc Test Result Platelets confirmed 08/18/25 05:12 WBC RBC Hgb Hct MCV MCH MCHC RDW Std Deviation Plt Count Neut % (Auto) Lymph % (Auto) [place] % (Auto) Eos % (Auto) Baso % (Auto) Neut # (Auto) Lymph # (Auto) [place] # (Auto) Eos # (Auto) Baso # (Auto) Immature Gran # (Auto) Absolute Nucleated RBC Immature Gran % Nucleated RBC % Sodium Potassium Chloride Carbon Dioxide Anion Gap BUN Creatinine Estim Creat Clear Calc eGFR BUN/Creatinine Ratio Glucose Calculated Osmolality Calcium Corrected Calcium Total Bilirubin AST ALT Alkaline Phosphatase Lactate Dehydrogenase 183 Total Protein 6.3 Albumin Globulin Albumin/Globulin Ratio Peritoneal Albumin Pleural Color Pleural Appearance Pleural WBC Pleural RBC Pleural Polynuclear WBC Pleural Mononuclear WBC Pleural Total Protein Pleural LDH Pleural Glucose Pleural Amylase Coccidioides IgG Ab Misc Test Result Quality Measures Quality Measures none Advance care planning discussed with:: patient Assessment & Plan Assessment Current Active Medications: Generic Name Dose Route Start Last Admin Trade Name Freq PRN Reason Stop Dose Admin Acetaminophen 1,000 mg 08/15/25 13:13 Acetaminophen 500 Mg Tablet PO 09/14/25 13:12 Q6H PRN Fever >101.5 Carvedilol 3.125 mg 08/17/25 17:30 08/18/25 07:58 Carvedilol 3.125 Mg Tablet PO 09/16/25 17:29 Not Given BIDWM OLGA Furosemide 40 mg 08/16/25 18:00 08/18/25 05:11 Furosemide Inj 10 Mg/Ml 4ml Vial IVP 09/15/25 17:59 Not Given BIDD OLGA Ceftriaxone Sodium/Dextrose 1 gm in 50 mls @ 100 mls/hr 08/16/25 09:00 08/18/25 08:08 Rocephin/D5w 1gm Iv Premix IV 08/23/25 08:59 100 mls/hr QDAY OLGA Administration Losartan Potassium 25 mg 08/17/25 09:00 08/18/25 07:58 Losartan Potassium 25 Mg Tablet PO 09/16/25 08:59 Not Given QDAY OLGA Ondansetron HCl 4 mg 08/15/25 13:13 Ondansetron Inj 2 Mg/Ml Inj 2 Ml IVP 09/14/25 13:12 Q6H PRN NAUSEA OR VOMITING Protocol Pantoprazole Sodium 40 mg 08/18/25 09:00 08/18/25 08:08 Pantoprazole Inj 40 Mg Vial IVP 09/17/25 08:59 40 mg QDAY OLGA Administration Plan 80-year-old male with past medical history of hypertension, decompensated liver cirrhosis secondary to alcohol use disorder, esophageal varices, HFpEF EF 40 to 45% admitted for symptomatic pleural effusion likely secondary to liver failure versus malignancy but less likely to be secondary to heart failure #HFpEF, global hypokinesis and moderately reduced systolic function Class III NYHA Heart Failure Classification Patient previously had an echo which showed HFrEF with an EF of 35-40 On exam, patient does not appear to be in acute heart failure exacerbation as there is no JVD, crackles on lung auscultation, patient's on room air and there is no lower extremity edema noted ECHO on 08/15/2025 is normal by two-dimensional, color flow imaging, and Doppler interrogation. Left ventricular systolic function is moderately reduced with visually estimated ejection fraction of 40-45%. The apex, inferior wall, anterior wall, anteroseptal wall, inferolateral wall, mid inferoseptal, and mid anterolateral wall are hypokinetic. Right ventricle size is normal, and systolic function is normal. There is mild aortic valve sclerosis with no stenosis. There is mild mitral valve regurgitation. Plan: Consider adding midodrine to increase blood pressure to tolerate GDMT Continue carvedilol as this medication can serve to address both HFpEF and esophageal variceal prophylaxis Continue Losartan Consider spironolactone outpatient or if BP improves Outpatient follow-up with cardiology within 1 to 2 weeks of discharge #Acute decompensated liver cirrhosis #Esophageal varices #Left pleural effusion #Possible pneumonia #Hypertension #History of alcohol use disorder #Normocytic anemia, likely blood loss anemia Rest of medical problems to be managed by both the hospitalist and gastroenterology team Patient seen and assessed with attending Dr. Benedicto Maguire, DO PGY-2 Internal Medicine - [facility]
[2025-08-18 09:40] LABS: Basophils # (Auto) 0.0 Thou/mm3 (0.0-0.2); Basophils % (Auto) 1 % (0-2.5); Eosinophils # (Auto) 0.1 Thou/mm3 (0.0-0.5); Eosinophils % (Auto) 3 % (0-10); Hematocrit 28.5 % (41.0-53.0); Hemoglobin 9.5 g/dL (13.5-16.0); Immature Granulocytes Auto 0.01 Thou/mm3 (0.00-0.00); Lymphocytes # (Auto) 0.4 Thou/mm3 (1.0-4.8); Lymphocytes % (Auto) 10 % (10-50); Mean Corpuscular HGB Conc 33.3 g/dl (31.0-37.0); Mean Corpuscular Hemoglobin 31.8 pg (25.0-35.0); Mean Corpuscular Volume 95 fL (80-100); Monocytes # (Auto) 0.5 Thou/mm3 (0.0-0.8); Monocytes % (Auto) 13 % (0-12); Neutrophils # (Auto) 2.9 Thou/mm3 (1.8-7.7); Neutrophils % (Auto) 74 % (37-80); Nucleated Red Blood Cell # 0.00 Thou/mm3 (0.00-0.00); Nucleated Red Blood Cell % 0 /100 WBC (0); RDW Standard Deviation 53.7 fL (35.1-43.9); Red Blood Count 2.99 Miln/mm3 (4.50-5.90); White Blood Count 4.0 Thou/mm3 (3.8-10.6)
[2025-08-18 09:44] LABS: Platelet Count 56 Thou/mm3 (140-440); Slide Review Platelets confirmed
[2025-08-18 10:05] LABS: Alanine Aminotransferase 9 U/L (10-49); Albumin, Serum 2.5 gm/dL (3.4-4.8); Albumin/Globulin Ratio 0.6 (1.2-2.2); Alkaline Phosphatase 64 U/L (46-116); Anion Gap 6 (7-16); Aspartate Amino Transferase 28 U/L (0-34); BUN/Creatinine Ratio 13 Ratio (12-20); Bilirubin,Total 0.8 mg/dL (0.3-1.2); Blood Urea Nitrogen 10 mg/dL (9-23); Calcium 7.9 mg/dL (8.3-10.6); Calcium (Corrected) 9.1 mg/dL (8.5-10.1); Carbon Dioxide 29.6 mMol/L (20.0-31.0); Chloride 101 mMol/L (98-107); Creatinine (Component) 0.8 mg/dL (0.6-1.3); Estimated Creatinine Clearance 61.7 mL/min (>60); Globulin 4.3 gm/dL (2.3-3.5); Glucose 140 mg/dL (74-106); Magnesium 1.9 mg/dL (1.6-2.6); Osmolality,Calculated 274 (275-295); Phosphorous 2.4 mg/dL (2.4-5.1); Potassium 3.2 mMol/L (3.4-5.1); Sodium 137 mMol/L (136-145); Total Protein 6.8 gm/dL (5.7-8.2); eGFR > 60 See Note
--- NOTE | 2025-08-18 11:28 | PD.RESPRO ---
Documentation for date of: 08/18/25 Subjective Subjective Interval history: NAEO. Repeated thoracentesis today. Patient denies acute pain. SpO2 appropriate on room air. Exam Vital Signs Temp Pulse Resp BP Pulse Ox O2 Del Method O2 Flow Rate 97 F 95 37 H 94/57 L 98 Nasal Cannula 3 08/18/25 07:53 08/18/25 10:48 08/18/25 08:28 08/18/25 07:53 08/18/25 08:28 08/18/25 07:53 08/18/25 08:28 Narrative Exam General: Frail elderly man, temporal wasting. Awake and in no acute distress. Neurologic: GCS 15. Alert and oriented x3, no gross neurological deficit, and patient able to move all 4 extremities. HEENT: Normocephalic, atraumatic, mucous membranes moist. Pupils reactive to light. Heart: Regular rate and rhythm, normal S1 and S2, no murmurs. Lungs: No breath sounds in the left base, decreased breath sounds in the right base, bilateral apices clear to auscultation. Abdomen: Nondistended, nontender. No guarding or rebound tenderness. Extremities: No edema. 2+ radial and dorsalis pedis pulses bilaterally. Skin: Warm. Dry. No rash or ecchymoses. Objective Labs 08/18/25 09:15 08/18/25 09:15 Labs: Laboratory Results - last 24 hr 08/15/25 08/17/25 08/17/25 09:51 09:24 14:30 WBC RBC Hgb Hct MCV MCH MCHC RDW Std Deviation Plt Count Neut % (Auto) Lymph % (Auto) [place] % (Auto) Eos % (Auto) Baso % (Auto) Neut # (Auto) Lymph # (Auto) [place] # (Auto) Eos # (Auto) Baso # (Auto) Immature Gran # (Auto) Absolute Nucleated RBC Immature Gran % Nucleated RBC % Sodium Potassium Chloride Carbon Dioxide Anion Gap BUN Creatinine Estim Creat Clear Calc eGFR BUN/Creatinine Ratio Glucose Calculated Osmolality Calcium Corrected Calcium Phosphorus Magnesium Total Bilirubin AST ALT Alkaline Phosphatase Lactate Dehydrogenase Total Protein Albumin Globulin Albumin/Globulin Ratio Peritoneal Albumin < 1.0 Pleural Color Red Pleural Appearance Bloody Pleural WBC 372 Pleural RBC 68359 Pleural Polynuclear WBC 17 Pleural Mononuclear WBC 83 Pleural Total Protein 2.2 Pleural LDH 80 Pleural Glucose 105 Pleural Amylase 31 [place] IgG Ab Negative Misc Test Result Platelets confirmed 08/18/25 08/18/25 05:12 09:15 WBC 4.0 RBC 2.99 L Hgb 9.5 L Hct 28.5 L MCV 95 MCH 31.8 MCHC 33.3 RDW Std Deviation 53.7 H Plt Count 56 L D Neut % (Auto) 74 Lymph % (Auto) 10 [place] % (Auto) 13 H Eos % (Auto) 3 Baso % (Auto) 1 Neut # (Auto) 2.9 Lymph # (Auto) 0.4 L [place] # (Auto) 0.5 Eos # (Auto) 0.1 Baso # (Auto) 0.0 Immature Gran # (Auto) 0.01 H Absolute Nucleated RBC 0.00 Immature Gran % 0 Nucleated RBC % 0 Sodium 137 Potassium 3.2 L Chloride 101 Carbon Dioxide 29.6 Anion Gap 6 L BUN 10 Creatinine 0.8 Estim Creat Clear Calc 61.7 eGFR > 60 BUN/Creatinine Ratio 13 Glucose 140 H Calculated Osmolality 274 L Calcium 7.9 L Corrected Calcium 9.1 Phosphorus 2.4 Magnesium 1.9 Total Bilirubin 0.8 AST 28 ALT 9 L Alkaline Phosphatase 64 Lactate Dehydrogenase 183 Total Protein 6.3 6.8 Albumin 2.5 L Globulin 4.3 H Albumin/Globulin Ratio 0.6 L Peritoneal Albumin Pleural Color Pleural Appearance Pleural WBC Pleural RBC Pleural Polynuclear WBC Pleural Mononuclear WBC Pleural Total Protein Pleural LDH Pleural Glucose Pleural Amylase Coccidioides IgG Ab Misc Test Result Platelets confirmed Quality Measures Quality Measures none Assessment & Plan Assessment Current Active Medications: Generic Name Dose Route Start Last Admin Trade Name Freq PRN Reason Stop Dose Admin Acetaminophen 1,000 mg 08/15/25 13:13 Acetaminophen 500 Mg Tablet PO 09/14/25 13:12 Q6H PRN Fever >101.5 Carvedilol 3.125 mg 08/17/25 17:30 08/18/25 07:58 Carvedilol 3.125 Mg Tablet PO 09/16/25 17:29 Not Given BIDWM OLGA Furosemide 40 mg 08/16/25 18:00 08/18/25 05:11 Furosemide Inj 10 Mg/Ml 4ml Vial IVP 09/15/25 17:59 Not Given BIDD OLGA Ceftriaxone Sodium/Dextrose 1 gm in 50 mls @ 100 mls/hr 08/16/25 09:00 08/18/25 08:08 Rocephin/D5w 1gm Iv Premix IV 08/23/25 08:59 100 mls/hr QDAY OLGA Administration Losartan Potassium 25 mg 08/17/25 09:00 08/18/25 07:58 Losartan Potassium 25 Mg Tablet PO 09/16/25 08:59 Not Given QDAY OLGA Ondansetron HCl 4 mg 08/15/25 13:13 Ondansetron Inj 2 Mg/Ml Inj 2 Ml IVP 09/14/25 13:12 Q6H PRN NAUSEA OR VOMITING Protocol Pantoprazole Sodium 40 mg 08/18/25 09:00 08/18/25 08:08 Pantoprazole Inj 40 Mg Vial IVP 09/17/25 08:59 40 mg QDAY OLGA Administration Plan 80-year-old male with a past medical history of Hypertension, cirrhosis with ascites, esophageal varices 4+ secondary to alcohol use disorder, CHF, HFrEF with an EF of 35-40%, who presented to the ED with chief complaint of water in his stomach and diffuse abdominal tenderness and pain during respiration. Thoracentesis was performed in the ED. Patient was admitted for observation of his acute decompensated cirrhosis secondary to alcohol use disorder. #Acute decompensated cirrhosis Abdominal ultrasound showed moderate ascites Abdomen no longer distended Patient mentions a history of alcohol use May be contributing to pleural effusion and ascites Plan: Patient received Lasix in the ED Continue Lasix 40 mg IV twice daily Reassessment: Trend urine output Follow-up abdominal exam #Left transudative pleural effusion #Possible pneumonia Patient has a history of ICU admission and thoracentesis that yielded 4 L of fluid in 2022 Large left pleural effusion shown on x-ray, evidence of pneumonia on the right as well Thoracentesis performed in the ED that yielded approximately 2 L of fluid, was sent for cytology, results showed a transudative pleural effusion, may be inaccurate due to diuresis, pleural fluid albumin pending Patient had improvement in his pain on respiration status-post thoracentesis Follow-up chest x-ray showed little improvement in lung volumes Patient had a second thoracentesis on 08/17/2025 that yielded 2 L of red fluid from the right pleural space Follow-up chest x-ray showed no pneumothorax on the right, large left pleural effusion is still present Plan: Ceftriaxone Pleural fluid cultures pending - though preliminary results show transudative effusions, this may be inaccurate due to diuresis Pleural fluid albumin pending Diuresing: Lasix 40 mg p.o. twice daily Reassessment: Patient attempted to ambulate, he walked 10 steps and became tachycardic with a rate of 147, a respiratory rate of 33, and desatted to 88% on 08/16/2025 Right thoracentesis pleural fluid sent for cytology #History of HFrEF EF 35 to 40% #History of CHF Echo in 2022 showed an EF of 35 to 40% Per med rec, patient is not on GDMT for HFrEF Patient has no signs of acute decompensated heart failure on exam, no peripheral edema, lung sounds outside of the pleural effusion are clear to auscultation, pleural effusion likely secondary to liver cirrhosis not acute decompensated heart failure Plan: Discontinued metoprolol succinate 25 on 08/17/2025 Coreg 3.125 mg twice daily with meals started on 08/17/2025 Losartan 25 milligrams p.o. daily Cardiology consult Reassessment: Monitor blood pressure Repeat echo showed EF of 40-45% Will discharge on GDMT #History of hypertension Per chart review Patient takes benazepril 20 mg daily Plan: Holding for now Started Coreg 3.125 p.o. twice daily with meals on 08/17/2025 #History of upper GI bleed #History of +4 bleeding esophageal varices secondary to #History of alcohol use disorder Follows Dr. Leiva Status post band ligation in 2022 Plan: Started Protonix 40 mg IV daily for 08/18/2025 #Normocytic anemia Hemoglobin 10.3, MCV 94 Plan: Appears to be a chronic issue Will transfuse if hemoglobin below 7 Hospital Maintenance: DVT ppx: SCDs, holding chemical prophylaxis, may repeat thoracentesis. Diet: Cardiac diet IV lines: Peripheral IVs Code status: Full code Dispo: Patient underwent thoracentesis on the right and 2 L of fluid were drained. Metoprolol was switched to Coreg. Protonix was started. Cardiology consulted. Continuing diuresis.
--- NOTE | 2025-08-18 11:43 | ESDS_ITS ---
Planned Discharge Date 08/18/25 DS: Providers Provider Date of admission: 08/16/25 17:34 Primary care physician: Rolo Ernandez MD Admitting Provider: Samara Ochoa DO Attending Provider on Admission: Trevon Maher MD Consults: 08/17/25 14:33 Consult to Cardiology Routine Comment: HFrEF Consulting Provider: So Diane Attending Provider on DC: Dr. Chamberlain Discharging Provider: Sneha Emanuel MD DS: Diagnosis Problem List Completed Was Problem List Reviewed/Reconciled?: Yes Hospital Course Hospital Course Hospital course: Hospital Course Mr. Felton is an 80-year-old male with past medical history of hypertension, BPH, chronic pleural effusion, alcoholic cirrhosis c/b ascites and esophageal varices, HFrEF who presents to the ED on 08/15 with abdominal pain, shortness of breath with ambulation x1 week. Upon evaluation in the ED, he was noted to have a large left pleural effusion and moderate right pleural effusion with possible pneumonia at the right lung base. Admitted for medical management of decompensated cirrhosis versus acute CHF exacerbation. Patient started on lasix and ceftriaxone for decompensated cirrhosis. Thoracentesis completed in ED, removed 2L. Started on IV diuretics and goal directed medical therapy given findings of EF 40-45% on echo (improved from previous LVEF 35-40% in 2022). [employer] consulted, noted that pleural fluid analysis c/w transudative effusions, though may be inaccurate due to diuresis. Repeat CXR showed increased lung volumes but residual pleural effusion present. Cardiology consulted, will follow up outpatient to further manage GDMT. Repeat thoracentesis performed 08/17, removed 2L. Patient to be discharged home with Carvedilol, Losartan, Spironolactone, Lasix as well as Protonix for hx esophageal varices and midodrine to tolerate GDMT. Patient hemodynamically stable, labs are reviewed, pain is well controlled, denies any SOB and pt is saturating above 94% on room air. Pt is cleared for discharge from cardiology as well. Diagnoses #Acute decompensated cirrhosis #Left transudative pleural effusion #History of HFrEF EF 35 to 40% #History of CHF #History of hypertension #History of upper GI bleed #History of +4 bleeding esophageal varices #History of alcohol use disorder #Normocytic anemia Discharge Instructions - Follow up with PCP within 1 week of discharge, if you do not have a primary care physician you can come see us at the [facility] by calling [phone] - Follow up with cardiology for further management of heart failure - Continue to abstain from alcohol use - Take Coreg (Carvedilol) 3.125 mg twice daily - Take Lasix (furosemide) 20 mg twice daily - Take spironolactone 25 mg daily - Take midodrine 5 mg three times daily if systolic (top number) BP <90 - Take Losartan 12.5 mg daily - Continue rest of medications as previously prescribed - Return to the ED or call EMS if symptoms return and/or worsen Sneha Emanuel MD PGY1 Time Spent with Patient Time attestation: Total time spent providing and/or coordinating discharge services: Time spent: Greater than 30 minutes Exam Vital Signs Temp Pulse Resp BP Pulse Ox O2 Del Method O2 Flow Rate 97 F 95 37 H 94/57 L 98 Nasal Cannula 3 08/18/25 07:53 08/18/25 10:48 08/18/25 08:28 08/18/25 07:53 08/18/25 08:28 08/18/25 07:53 08/18/25 08:28 Narrative Exam General: No acute distress, frail Eye: PERRL, EOMI, normal conjunctiva, mildly icteric sclera HENT: Normocephalic, atraumatic, normal hearing, moist oral mucosa Neck: Supple, non-tender, no JVD, no lymphadenopathy Lungs: Decreased breath sounds on bilateral lower lung roem, symmetric chest rise, no use of accessory muscles Heart: Normal S1 and S2, no S3 or S4 appreciated. Normal rate and regular rhythm, no murmurs, rubs gallops, or edema. Peripheral pulses intact bilaterally, capillary refill brisk distally Abdomen: Soft, non-tender, non-distended, normal bowel sounds. No guarding or rebound tenderness. Musculoskeletal: Normal range of motion and strength, no tenderness or swelling Skin: Skin is warm, dry, no rashes or lesions. Neurologic: Alert, awake and oriented x3. CN II-XII grossly intact. No focal neuro deficits. No signs of meningeal irritation noted. Psychiatric: Cooperative, appropriate mood and affect Discharge Plan Plan Patient Disposition: HOME (Self Care) Patient condition on transfer: Stable Care Plan Goals: - Follow up with PCP within 1 week of discharge, if you do not have a primary care physician you can come see us at the [facility] by calling [phone] - Follow up with cardiology for further management of heart failure - Continue to abstain from alcohol use - Take Coreg (Carvedilol) 3.125 mg twice daily - Take Lasix (furosemide) 20 mg twice daily - Take spironolactone 25 mg daily - Take midodrine 5 mg three times daily if systolic (top number) BP <90 - Take Losartan 12.5 mg daily - Continue rest of medications as previously prescribed - Return to the ED or call EMS if symptoms return and/or worsen Prescriptions/Referrals Prescriptions/Med Rec: New carvedilol 3.125 mg Tablet 3.125 mg PO BIDWM 30 Days Qty: 30 0RF furosemide [Lasix] 20 mg tablet 20 mg PO BIDD 30 Days Qty: 30 0RF losartan 25 mg tablet 12.5 mg PO QDAY 30 Days Qty: 15 0RF midodrine 5 mg tablet 5 mg PO TID 30 Days Qty: 90 0RF Rx Instructions: do not give last dose of day after 6PM or within 4 hrs of bedtime spironolactone 25 mg tablet 25 mg PO QDAY 30 Days Qty: 30 0RF Discontinued tamsulosin 0.4 mg capsule 0.4 mg PO QHS benazepril 20 mg tablet 20 mg PO QDAY lovastatin 20 mg Tablet 20 mg PO QPM Referrals: Rolo Ernandez MD [Primary Care Provider, Family Practice] Patient/Caregiver Discharge Instructions Print Language: Albanian Stand Alone Forms: Jazmine Award Info., Patient Portal Info Letter Discharge Order Discharge Orders: Discharge (Routine); Ordered 08/18/25 Ordered By: Elvai Mckinley Quality Discharge Quality Measures VTE prophylaxis Attestestation Attestation I reviewed labs, imaging, EKG, home medications and prior available records. Face to face evaluation was performed by me. I have personally examined the patient and discussed assessment and plan with the IM team. I reviewed the resident note and agree with the plan with exceptions as below. Decompensated liver cirrhosis HFrEF EF 40 to 45% Pleural effusion Alcoholic cirrhosis Thrombocytopenia Status post pleurocentesis Continue Lasix and spironolactone Midodrine as needed for hypotension Continue low-dose losartan and carvedilol given the borderline BP Monitor CBC Outpatient follow-up with cardiology Outpatient follow-up with hepatology Time spent is 42 minutes. More than 50% of the time was spent on patient education and coordination of care.
--- NOTE | 2025-08-18 13:13 | PC.NURSE ---
call to pharmacy, please send the [facility]
[2025-08-18] MEDS: POT PHOS 15 mMol in NS 250 ML 15 MMOL/250 ML BAG 62.5 MMOL IV ×2 (13:29→17:37)
[2025-08-18] MEDS: FUROSEMIDE INJ 10 MG/ML 4ML VIAL 40 MG IVP (18:00)
[2025-08-19] VITALS (11 sets, daily range): BP systolic 85–100; BP diastolic 53–62; PULSE 78–103; RESP 16–25; TEMP 36.5–37.2; O2SAT 93–95
[2025-08-19] MEDS: Magnesium Sulfate 2 GM Ivpb 2 GM/50 ML BAG IV (03:57)
[2025-08-19 06:10] LABS: Basophils # (Auto) 0.0 Thou/mm3 (0.0-0.2); Basophils % (Auto) 1 % (0-2.5); Eosinophils # (Auto) 0.1 Thou/mm3 (0.0-0.5); Eosinophils % (Auto) 4 % (0-10); Hematocrit 26.7 % (41.0-53.0); Hemoglobin 9.0 g/dL (13.5-16.0); Immature Granulocytes Auto 0.01 Thou/mm3 (0.00-0.00); Lymphocytes # (Auto) 0.4 Thou/mm3 (1.0-4.8); Lymphocytes % (Auto) 11 % (10-50); Mean Corpuscular HGB Conc 33.7 g/dl (31.0-37.0); Mean Corpuscular Hemoglobin 31.8 pg (25.0-35.0); Mean Corpuscular Volume 94 fL (80-100); Monocytes # (Auto) 0.5 Thou/mm3 (0.0-0.8); Monocytes % (Auto) 14 % (0-12); Neutrophils # (Auto) 2.6 Thou/mm3 (1.8-7.7); Neutrophils % (Auto) 70 % (37-80); Nucleated Red Blood Cell # 0.00 Thou/mm3 (0.00-0.00); Nucleated Red Blood Cell % 0 /100 WBC (0); RDW Standard Deviation 52.6 fL (35.1-43.9); Red Blood Count 2.83 Miln/mm3 (4.50-5.90); White Blood Count 3.7 Thou/mm3 (3.8-10.6)
[2025-08-19 06:25] LABS: Platelet Count 43 Thou/mm3 (140-440)
[2025-08-19 06:35] LABS: Alanine Aminotransferase 7 U/L (10-49); Albumin, Serum 2.3 gm/dL (3.4-4.8); Albumin/Globulin Ratio 0.6 (1.2-2.2); Alkaline Phosphatase 59 U/L (46-116); Anion Gap 5 (7-16); Aspartate Amino Transferase 26 U/L (0-34); BUN/Creatinine Ratio 16 Ratio (12-20); Bilirubin,Total 0.8 mg/dL (0.3-1.2); Blood Urea Nitrogen 13 mg/dL (9-23); Calcium 7.3 mg/dL (8.3-10.6); Calcium (Corrected) 8.7 mg/dL (8.5-10.1); Carbon Dioxide 32.4 mMol/L (20.0-31.0); Chloride 100 mMol/L (98-107); Creatinine (Component) 0.8 mg/dL (0.6-1.3); Estimated Creatinine Clearance 61.7 mL/min (>60); Globulin 3.8 gm/dL (2.3-3.5); Glucose 92 mg/dL (74-106); Magnesium 1.9 mg/dL (1.6-2.6); Osmolality,Calculated 273 (275-295); Phosphorous 3.2 mg/dL (2.4-5.1); Potassium 3.8 mMol/L (3.4-5.1); Sodium 137 mMol/L (136-145); Total Protein 6.1 gm/dL (5.7-8.2); eGFR > 60 See Note
--- NOTE | 2025-08-19 09:00 | ESPR_ITS ---
<Statement entered by So Diane MD - 08/22/25 18:12> Patient personally evaluated examined and MedSurg floor patient is clinically stable no shortness or chest pain reported pleural effusion was drained heart failure well compensated patient can be discharged follow-up as an outpatient clinically stable. Evaluated patient with resident physician PGY 2Dr. Ever Jones agree with treatment plan recommendations documented Documentation for date of: 08/19/25 Subjective Subjective Interval history: Patient seen and examined in hospital bed denies have any concerning symptoms at this time. Continues to require supplemental oxygen although very minimal 1 to 2 L and saturating 95+. Patient was supposed to be discharged yesterday; however, due to electrolyte abnormalities and some PVCs noted on telemetry, decision was made to keep the patient overnight for monitoring. Patient is stable from cardiology standpoint for discharge with close follow-up for heart failure alongside superimposed decompensated liver cirrhosis. Exam Vital Signs Temp Pulse Resp BP Pulse Ox O2 Del Method O2 Flow Rate 97.8 F 99 20 100/62 93 L Nasal Cannula 1 08/19/25 08:00 08/19/25 08:00 08/19/25 08:00 08/19/25 08:00 08/19/25 08:00 08/19/25 08:00 08/19/25 08:00 Narrative Exam Physical Exam: GENERAL: Awake, answering questions appropriately in Faroese, appears frail HEENT: NC/AT. Moist mucosa. PERRLA/EOMI. mildly anicteric sclera CARDIO: Heart RRR, no obvious murmurs, no JVD. PULM: No coughing or visible SOB. Decreased breath sounds on bilateral lower lung rome, no wheeze/rales/rhonchi GI: Abdomen soft, mildly distended but nontender on palpation, borborygmi apparent SKIN/MSK/EXT: Mild discoloration of the skin, jaundice. No wounds/edema/amputations noted. +Pedal pulses present B/L. NEURO: Oriented x3, Moves extremities x4, no focal neurologic deficits noted Objective Labs 08/19/25 04:50 08/19/25 04:50 Labs: Laboratory Results - last 24 hr 08/18/25 08/19/25 09:15 04:50 WBC 4.0 3.7 L RBC 2.99 L 2.83 L Hgb 9.5 L 9.0 L Hct 28.5 L 26.7 L MCV 95 94 MCH 31.8 31.8 MCHC 33.3 33.7 RDW Std Deviation 53.7 H 52.6 H Plt Count 56 L D 43 L D Neut % (Auto) 74 70 Lymph % (Auto) 10 11 [place] % (Auto) 13 H 14 H Eos % (Auto) 3 4 Baso % (Auto) 1 1 Neut # (Auto) 2.9 2.6 Lymph # (Auto) 0.4 L 0.4 L [place] # (Auto) 0.5 0.5 Eos # (Auto) 0.1 0.1 Baso # (Auto) 0.0 0.0 Immature Gran # (Auto) 0.01 H 0.01 H Absolute Nucleated RBC 0.00 0.00 Immature Gran % 0 0 Nucleated RBC % 0 0 Sodium 137 137 Potassium 3.2 L 3.8 D Chloride 101 100 Carbon Dioxide 29.6 32.4 H Anion Gap 6 L 5 L BUN 10 13 Creatinine 0.8 0.8 Estim Creat Clear Calc 61.7 61.7 eGFR > 60 > 60 BUN/Creatinine Ratio 13 16 Glucose 140 H 92 Calculated Osmolality 274 L 273 L Calcium 7.9 L 7.3 L Corrected Calcium 9.1 8.7 Phosphorus 2.4 3.2 Magnesium 1.9 1.9 Total Bilirubin 0.8 0.8 AST 28 26 ALT 9 L 7 L Alkaline Phosphatase 64 59 Total Protein 6.8 6.1 Albumin 2.5 L 2.3 L Globulin 4.3 H 3.8 H Albumin/Globulin Ratio 0.6 L 0.6 L Misc Test Result Platelets confirmed See comment Quality Measures Quality Measures VTE prophylaxis Advance care planning discussed with:: patient Assessment & Plan Assessment Current Active Medications: Generic Name Dose Route Start Last Admin Trade Name Freq PRN Reason Stop Dose Admin Acetaminophen 1,000 mg 08/15/25 13:13 Acetaminophen 500 Mg Tablet PO 09/14/25 13:12 Q6H PRN Fever >101.5 Carvedilol 3.125 mg 08/17/25 17:30 08/18/25 18:01 Carvedilol 3.125 Mg Tablet PO 09/16/25 17:29 3.125 mg BIDWM OLGA Administration Furosemide 40 mg 08/16/25 18:00 08/19/25 05:23 Furosemide Inj 10 Mg/Ml 4ml Vial IVP 09/15/25 17:59 Not Given BIDD OLGA Ceftriaxone Sodium/Dextrose 1 gm in 50 mls @ 100 mls/hr 08/16/25 09:00 08/18/25 08:08 Rocephin/D5w 1gm Iv Premix IV 08/23/25 08:59 100 mls/hr QDAY OLGA Administration Losartan Potassium 25 mg 08/17/25 09:00 08/18/25 07:58 Losartan Potassium 25 Mg Tablet PO 09/16/25 08:59 Not Given QDAY OLGA Ondansetron HCl 4 mg 08/15/25 13:13 Ondansetron Inj 2 Mg/Ml Inj 2 Ml IVP 09/14/25 13:12 Q6H PRN NAUSEA OR VOMITING Protocol Pantoprazole Sodium 40 mg 08/18/25 09:00 08/18/25 08:08 Pantoprazole Inj 40 Mg Vial IVP 09/17/25 08:59 40 mg QDAY OLGA Administration Plan 80-year-old male with past medical history of hypertension, decompensated liver cirrhosis secondary to alcohol use disorder, esophageal varices, HFpEF EF 40 to 45% admitted for symptomatic pleural effusion likely secondary to liver failure versus malignancy but less likely to be secondary to heart failure #HFpEF, global hypokinesis and moderately reduced systolic function Class III NYHA Heart Failure Classification Patient previously had an echo which showed HFrEF with an EF of 35-40 On exam, patient does not appear to be in acute heart failure exacerbation as there is no JVD, crackles on lung auscultation, patient's on room air and there is no lower extremity edema noted ECHO on 08/15/2025 is normal by two-dimensional, color flow imaging, and Doppler interrogation. Left ventricular systolic function is moderately reduced with visually estimated ejection fraction of 40-45%. The apex, inferior wall, anterior wall, anteroseptal wall, inferolateral wall, mid inferoseptal, and mid anterolateral wall are hypokinetic. Right ventricle size is normal, and systolic function is normal. There is mild aortic valve sclerosis with no stenosis. There is mild mitral valve regurgitation. Plan: Consider adding midodrine to increase blood pressure to tolerate GDMT Continue carvedilol as this medication can serve to address both HFpEF and esophageal variceal prophylaxis Continue Losartan Consider spironolactone outpatient or if BP improves Outpatient follow-up with cardiology within 1 to 2 weeks of discharge #Acute decompensated liver cirrhosis #Esophageal varices #Left pleural effusion #Possible pneumonia #Hypertension #History of alcohol use disorder #Normocytic anemia, likely blood loss anemia Rest of medical problems to be managed by both the hospitalist and gastroenterology team Patient seen and assessed with attending Dr. Benedicto Jones, DO PGY-2 Internal Medicine - [facility]
[2025-08-19] MEDS: cefTRIAXone/D5w 1gm IV premix 1 GM/50 ML BAG IV (09:02)
[2025-08-19] MEDS: LOSARTAN POTASSIUM 25 MG TABLET PO (09:03)
--- NOTE | 2025-08-19 09:27 | PC.SS ---
Follow up note: Patient was to discharge yesterday. SS will discuss with floor nurse time for discharge today.
--- NOTE | 2025-08-19 11:16 | ESDS_ITS ---
Planned Discharge Date 08/19/25 DS: Providers Provider Date of admission: 08/16/25 17:34 Primary care physician: Rolo Ernandez MD Admitting Provider: Samara Ochoa DO Attending Provider on Admission: Trevon Maher MD Consults: 08/17/25 14:33 Consult to Cardiology Routine Comment: HFrEF Consulting Provider: So Diane Attending Provider on DC: Dr. Chamberlain Discharging Provider: Sneha Emanuel MD DS: Diagnosis Problem List Completed Was Problem List Reviewed/Reconciled?: Yes Hospital Course Hospital Course Hospital course: Hospital Course Mr. Felton is an 80-year-old male with past medical history of hypertension, BPH, chronic pleural effusion, alcoholic cirrhosis c/b ascites and esophageal varices, HFrEF who presents to the ED on 08/15 with abdominal pain, shortness of breath with ambulation x1 week. Upon evaluation in the ED, he was noted to have a large left pleural effusion and moderate right pleural effusion with possible pneumonia at the right lung base. Admitted for medical management of decompensated cirrhosis versus acute CHF exacerbation. Patient started on lasix and ceftriaxone for decompensated cirrhosis. Thoracentesis completed in ED, removed 2L. Started on IV diuretics and goal directed medical therapy given findings of EF 40-45% on echo (improved from previous LVEF 35-40% in 2022). Grommet Machine Operator consulted, noted that pleural fluid analysis c/w transudative effusions, though may be inaccurate due to diuresis. Repeat CXR showed increased lung volumes but residual pleural effusion present. Cardiology consulted, will follow up outpatient to further manage GDMT. Repeat thoracentesis performed 08/17, removed 2L. Patient to be discharged home with Carvedilol, Losartan, Spironolactone, Lasix as well as Protonix for hx esophageal varices and midodrine to tolerate GDMT. Patient hemodynamically stable, labs are reviewed, pain is well controlled, denies any SOB and pt is saturating above 94% on room air. Pt is cleared for discharge from cardiology as well. Anticipated d/c 08/18, but patient required electrolyte repletion. Repletion completed with labs WNL. Diagnoses #Acute decompensated cirrhosis #Left transudative pleural effusion #History of HFrEF EF 35 to 40% #History of CHF #History of hypertension #History of upper GI bleed #History of +4 bleeding esophageal varices #History of alcohol use disorder #Normocytic anemia Discharge Instructions - Follow up with PCP within 1 week of discharge, if you do not have a primary care physician you can come see us at the [facility] by calling [phone] - Follow up with cardiology for further management of heart failure - Continue to abstain from alcohol use - Take Coreg (Carvedilol) 3.125 mg twice daily - Take Lasix (furosemide) 20 mg twice daily - Take spironolactone 25 mg daily - Take midodrine 5 mg three times daily if systolic (top number) BP <90 - Take Losartan 12.5 mg daily - Continue rest of medications as previously prescribed - Return to the ED or call EMS if symptoms return and/or worsen Sneha Emanuel MD PGY1 Time Spent with Patient Time attestation: Total time spent providing and/or coordinating discharge services: Time spent: Greater than 30 minutes Exam Vital Signs Temp Pulse Resp BP Pulse Ox O2 Del Method O2 Flow Rate 97.8 F 99 20 100/62 95 Nasal Cannula 1 08/19/25 08:00 08/19/25 09:32 08/19/25 08:02 08/19/25 09:03 08/19/25 08:02 08/19/25 08:00 08/19/25 08:02 Narrative Exam General: No acute distress, frail Eye: PERRL, EOMI, normal conjunctiva, mildly icteric sclera HENT: Normocephalic, atraumatic, normal hearing, moist oral mucosa Neck: Supple, non-tender, no JVD, no lymphadenopathy Lungs: Decreased breath sounds on bilateral lower lung rome, symmetric chest rise, no use of accessory muscles Heart: Normal S1 and S2, no S3 or S4 appreciated. Normal rate and regular rhythm, no murmurs, rubs gallops, or edema. Peripheral pulses intact bilaterally, capillary refill brisk distally Abdomen: Soft, non-tender, non-distended, normal bowel sounds. No guarding or rebound tenderness. Musculoskeletal: Normal range of motion and strength, no tenderness or swelling Skin: Skin is warm, dry, no rashes or lesions. Neurologic: Alert, awake and oriented x3. CN II-XII grossly intact. No focal neuro deficits. No signs of meningeal irritation noted. Psychiatric: Cooperative, appropriate mood and affect Discharge Plan Plan Patient Disposition: HOME (Self Care) Patient condition on transfer: Stable Care Plan Goals: - Follow up with PCP within 1 week of discharge, if you do not have a primary care physician you can come see us at the [facility] by calling [phone] - Follow up with cardiology for further management of heart failure - Continue to abstain from alcohol use - Take Coreg (Carvedilol) 3.125 mg twice daily - Take Lasix (furosemide) 20 mg twice daily - Take spironolactone 25 mg daily - Take midodrine 5 mg three times daily if systolic (top number) BP <90 - Take Losartan 12.5 mg daily - Continue rest of medications as previously prescribed - Return to the ED or call EMS if symptoms return and/or worsen - Asher un seguimiento con queen m?dico de cabecera dentro de la semana posterior al sofie. Si no tiene un m?dico de cabecera, puede acudir a la [facility]?davon llamando al [phone]. - Asher un seguimiento con cardiolog?a para el tratamiento de la insuficiencia card?rosa. - Contin?e absteni?ndose de consumir alcohol. - [place] Coreg (Carvedilol) 3.125 mg dos veces al d?a. - [place] Lasix (furosemida) 20 mg dos veces al d?a. - [place] espironolactona 25 mg al d?a. - [place] midodrina 5 mg cosmo veces al d?a si queen presi?n arterial sist?lica (el n?rylan superior) es angus de 90 mmHg. - [place] Losart?n 12.5 mg al d?a. - Contin?e con el mary de los medicamentos seg?n lo prescrito. - Regrese a urgencias o llame a emergencias m?dicas si los s?ntomas reaparecen o empeoran. Prescriptions/Referrals Prescriptions/Med Rec: New carvedilol 3.125 mg Tablet 3.125 mg PO BIDWM 30 Days Qty: 30 0RF furosemide [Lasix] 20 mg tablet 20 mg PO BIDD 30 Days Qty: 30 0RF losartan 25 mg tablet 12.5 mg PO QDAY 30 Days Qty: 15 0RF midodrine 5 mg tablet 5 mg PO TID 30 Days Qty: 90 0RF Rx Instructions: do not give last dose of day after 6PM or within 4 hrs of bedtime spironolactone 25 mg tablet 25 mg PO QDAY 30 Days Qty: 30 0RF Discontinued tamsulosin 0.4 mg capsule 0.4 mg PO QHS benazepril 20 mg tablet 20 mg PO QDAY lovastatin 20 mg Tablet 20 mg PO QPM Referrals: Rolo Ernandez MD [Primary Care Provider, Family Practice] Patient/Caregiver Discharge Instructions Education Materials: Thoracentesis Dc Print Language: Syriac Stand Alone Forms: [employer] Award Info., Patient Portal Info Letter Discharge Order Discharge Orders: Discharge (Routine); Ordered 08/18/25 Ordered By: Elvia Mckinley Quality Discharge Quality Measures VTE prophylaxis MD Attestestation MD Attestation I reviewed labs, imaging, EKG, home medications and prior available records. Face to face evaluation was performed by me. I have personally examined the patient and discussed assessment and plan with the IM team. I reviewed the resident note and agree with the plan with exceptions as below. Decompensated liver cirrhosis HFrEF EF 40 to 45% Pleural effusion Alcoholic cirrhosis Thrombocytopenia Status post pleurocentesis Continue Lasix and spironolactone Midodrine as needed for hypotension Continue low-dose losartan and carvedilol given the borderline BP Monitor CBC Outpatient follow-up with cardiology Outpatient follow-up with hepatology Time spent is 42 minutes. More than 50% of the time was spent on patient education and coordination of care.
== END 2025-08-19 12:05 | disposition home or self-care (01) | DRG 432 ==
LOC: SERX 13:21 → SERHOLD 13:53 → S3SX 18:13
PROVIDERS: Admitting Provider Internal Medicine; Emergency Provider Emergency Medicine; PCP Family Medicine; Visit Provider Internal Medicine Critical Care Medicine
DX: K70.31 Alcoholic cirrhosis of liver with ascites (principal); J18.9 Pneumonia, unspecified organism; I50.42 Chronic combined systolic (congestive) and diastolic (congestive) heart failure; I11.0 Hypertensive heart disease with heart failure; F10.10 Alcohol abuse, uncomplicated; I35.8 Other nonrheumatic aortic valve disorders; I49.3 Ventricular premature depolarization; D64.89 Other specified anemias; D50.0 Iron deficiency anemia secondary to blood loss (chronic); N40.0 Benign prostatic hyperplasia without lower urinary tract symptoms; Z79.899 Other long term (current) drug therapy
CPT/HCPCS: 36415; 71045; 76705; 80053; 80061; 82042; 82150; 82945; 83615; 83690; 83735; 83880; 84100; 84155; 84157; 85025; 85610; 85730; 86331; 86635; 87070; 87075; 87205; 87502; 87635; 89051; 93225; 93306; 96365; 96366; 99283; G0378; J0696; J1938; J2470; J3475; J3490; J7999; A9270